=== PATIENT | male | born 1955 | race Caucasian/White ===

== ENCOUNTER → 2024-02-16 08:14 | Outpatient (REF) | payer OTHER, SELFPAY | LOC: HWRAD 08:14 | PROVIDERS: ATTENDING PHYSICIAN Family Medicine | DX: Z87.891 Personal history of nicotine dependence (principal) | CPT/HCPCS: 71250 ==

== ENCOUNTER 2024-04-30 15:57 | Inpatient (IN) | payer OTHER, SELFPAY ==
[2024-04-30] VITALS (7 sets, daily range): BP systolic 106–148; BP diastolic 47–65; BMI 30.1
--- NOTE | 2024-04-30 12:37 | ED.GENMED ---
History of Present Illness
General
Chief Complaint: Cardiac Symptoms
Time Seen by Provider: 04/30/24 12:18
History of Present Illness
History of Present Illness:
Patient is a 69-year-old male with history of peripheral arterial disease, pancreatitis, diabetes presenting to the emergency department back pain chest pain and abdominal pain. Patient states that last week he thought he had back pain secondary to
sleeping in uncomfortable hotel bed. He was also sick last week with the chills and diarrhea. He came back 3 days ago to begin his usual bowel. He states the back pain did slightly improve. However this morning around 4 AM he woke up with
worsening back pain that radiated to his chest as well as worsening abdominal pain. He states that it is a soreness. It is not tearing. No numbness tingling. No weakness. No nausea or diaphoresis. This does not feel similar to his
pancreatitis. No fevers or chills since last week. He did take Tylenol with some relief. No saddle anesthesia or urinary retention spinal injections or history of IV drug use
Past History
Past History
ED Past Medical History: HTN, Hypercholesterolemia and Other (Pancreatitis); Negative IDDM
ED Past Surgical History: None
Social History
Tobacco: Smoker
Personal:
Phy Exam
Physical Exam
Physical Exam:
GENERAL: Appears uncomfortable
HEENT: normocephalic, extraocular movements intact, moist oral mucosa
NECK: normal inspection
Back: No reproducible tenderness to palpation
RESPIRATORY: Tachypneic, clear to auscultation bilaterally
CARDIOVASCULAR: regular rate and rhythm, 2+ radial pulse to the right, 1+ radial pulse to the left
ABDOMEN/: soft, non-distended, diffusely tender,, no rebound or guarding
EXTREMITIES: non-tender, no edema/swelling
NEUROLOGIC: awake and alert, moves all extremities
SKIN: warm
Course
Orders/Labs/Results
Orders:
Orders
04/30/24 11:34
EKG [Electrocardiogram (*1)] Urgent
Reason for Study: Chest Pain
EKG- Treatment ONCE
04/30/24 12:22
CXR2 [CR Chest - 2 Views ] Urgent
Comment:
Reason For Exam: chest pain with SOB
04/30/24 12:36
CT Chest/abd/pelvis Angio W/wo Urgent
Comment:
Reason For Exam: back pain, chest pain, slight pulse def
04/30/24 12:46
Complete Blood Count/With Diff Urgent
Comprehensive Metabolic Panel Urgent
Lipase Urgent
Troponin I Urgent
04/30/24 13:10
Acetaminophen [Tylenol] 1,000 mg PO NOW STA
Abnormal Lab Results
04/30/24
12:46
WBC 21.0 H 10^3/uL
(4.8-10.8)
Plt Count 408 H 10^3/uL
(130-400)
Abs Immat Gran (auto) 0.4 H 10^3/uL
(0-0.05)
Absolute Neuts (auto) 19.5 H 10^3/uL
(1.4-6.5)
Absolute Lymphs (auto) 0.4 L 10^3/uL
(1.2-3.4)
Immature Gran % 1.8 H %
(0-0.5)
Neutrophils % 92.7 H %
(42.2-75.2)
Lymphocytes % 2.1 L %
(20.5-51.1)
Carbon Dioxide 19 L mmol/L
(22-30)
BUN 24 H mg/dl
(9-20)
Glucose 254 H mg/dl
(70-99)
Total Bilirubin 7.6 H mg/dl
(0.2-1.3)
AST 882 H* U/L
(17-59)
ALT 1079 H* U/L
(0-50)
Alkaline Phosphatase 415 H U/L
(38-126)
Lipase > 4000 H* U/L
(23-300)
04/30/24 12:46
04/30/24 12:46
Vital Signs
Initial and Last Documented VS:
Initial Vital Signs
Temp Pulse Resp BP Pulse Ox
98.1 F 96 20 148/65 96
04/30/24 11:37 04/30/24 11:37 04/30/24 11:37 04/30/24 11:37 04/30/24 11:37
Last Documented Vital Signs
Temp Pulse Resp BP Pulse Ox
98.1 F 87 27 134/52 94
04/30/24 11:37 04/30/24 13:45 04/30/24 13:45 04/30/24 13:00 04/30/24 13:45
MDM/Problems Addressed
Differential Diagnosis Includes:
Patient is a 69-year-old male with history of peripheral arterial disease, diabetes, pancreatitis presenting to the emergency department with sudden onset back pain chest pain and abdominal pain. Vital signs are notable for tachypnea and exam shows
a man who appears uncomfortable with tachypneic and short of breath while talking. He does have a slight pulse deficit to his left radius. He does not have any red flags to suggest cauda equina or abscess or compression syndrome. Could be aortic
pathology such as dissection given the pain that is from the back to the chest with the subtle difference in the pulse. Could be malignancy or pathologic fracture. Could also be pancreatitis or gastroenteritis. Less likely to be PE as he is not
hypoxic or tachycardic. Will check blood work and obtain CT dissection protocol. EKG per my interpretation normal sinus rhythm though he does have a rightward axis which is new.
*Critical Care Note
Total Time (30-74mins, 75-104mins- exclusive of procedures): Not Applicable
Update Note
Update Note:
On reevaluation patient does seem slightly comfortable. His tachypnea has resolved after the pain medications. Received a critical call for his lipase being greater than 4000. He does also has transaminitis. His white count is also elevated
though he is not febrile and currently does not have any infectious signs or symptoms. CT scan of the chest abdomen pelvis is negative for dissection. He does have cystic pancreatic masses with signs of chronic pancreatitis. Nothing acute. Given
this discussed with hospitalist for further admission and evaluation. Given that there is no source for the leukocytosis we will hold off on antibiotics at this time and will defer to the inpatient team.
ED Attending Note
-
Portions of this chart may have been created with voice recognition software.� Occasional wrong word or��sound alike� substitutions may have occurred due to the inherent limitations of voice recognition software.
Discharge Plan
Departure
Patient Disposition: Admit
Date of Disposition: 04/30/24
Time of Disposition: 15:21
Presentation/result/management discussed w/ accepting MD/DO: Hospitalist
Discharge Problem:
Chronic pancreatitis, Transaminitis
Prescriptions:
No Action
aspirin [St Leopoldo Aspirin] 81 MG tablet,chewable
81 mg PO Q48H
insulin glargine [Lantus Solostar U-100 Insulin] 300 UNITS/3 ML insulin pen
45 units SC HS
metformin 500 mg Tablet
1,000 mg PO DAILY
loperamide 2 mg Tablet
2 mg PO TIDPRN PRN (Reason: diarrhea )
Theragen Tablet
1 tab PO DAILY
acetaminophen [Tylenol Extra Strength] 500 mg Tablet
1,000 mg PO DAILY
lisinopril 5 mg Tablet
5 mg PO DAILY
insulin lispro [Humalog KwikPen Insulin] 100 unit/mL Insulin Pen
20 sliding scale dose SC AC
rosuvastatin [Crestor] 40 mg Tablet
40 mg PO DAILY
fenofibrate nanocrystallized [Tricor] 145 mg Tablet
145 mg PO DAILY
Referrals:
Josue Garcia MD [Family Provider] -
Interventions
Interventions:
*Risk Screen - Suicide Last Done: 04/30/24 11:37
*General Assessment Last Done: 04/30/24 11:37
*Neglect/Abuse Screening Last Done: 04/30/24 11:37
ED- Fall Risk Assessment Last Done: 04/30/24 12:53
*ED COVID-19 Vaccine History Last Done: 04/30/24 12:53
ED- Pulmonary Assessment Last Done: 04/30/24 12:53
ED-Musculoskeletal Assessment Last Done: 04/30/24 12:53
ED- Cardiac Assessment Last Done: 04/30/24 12:53
Discharge Date and Time
Print Language: SINGAPOREAN
[2024-04-30 12:53] LABS: % Basophils 0.7 % (0-2); % Immature Granulocytes 1.8 % (0-0.5); % Lymphocytes 2.1 % (20.5-51.1); % Monocytes 2.7 % (1.7-9.3); % Neutrophils 92.7 % (42.2-75.2); Absolute Basophils 0.1 10^3/uL (0-0.2); Absolute Immature Granulocytes 0.4 10^3/uL (0-0.05); Absolute Lymphocytes 0.4 10^3/uL (1.2-3.4); Absolute Monocytes 0.6 10^3/uL (0.1-0.6); Absolute Neutrophils 19.5 10^3/uL (1.4-6.5); Hematocrit 42.3 % (39.0-52.0); Hemoglobin 14.6 g/dL (13.0-18.0); Mean Corp Hgb Conc. 34.5 g/dL (33.0-37.0); Mean Corpuscular Hgb 29.5 pg (27.0-31.0); Mean Corpuscular Volume 85.5 fL (80.0-94.0); Mean Platelet Volume 9.5 fL (7.4-10.4); Nucleated Red Blood Cells % 0 % (-); Platelet Count 408 10^3/uL (130-400); Red Blood Cell Count 4.95 10^6/uL (4.70-6.10); Red Cell Dist. Width 14.3 % (11.5-14.5)
[2024-04-30 13:15] LABS: Alkaline Phosphatase 415 U/L (38-126); Blood Urea Nitrogen 24 mg/dl (9-20); Calcium 10.2 mg/dl (8.4-10.2); Carbon Dioxide 19 mmol/L (22-30); Chloride 102 mmol/L (98-107); Estimated Creatinine Clearance 82 ml/min; Glucose 254 mg/dl (70-99); Potassium 4.5 mmol/L (3.5-5.1); Sodium 135 mmol/L (135-145); Total Bilirubin 7.6 mg/dl (0.2-1.3); Total Protein 7.2 g/dl (6.3-8.2); eGFR > 60.00
[2024-04-30] MEDS: TYLENOL 1000 MG PO (13:18)
[2024-04-30 13:24] LABS: Troponin I < 0.012 ng/ml
[2024-04-30 13:31] LABS: Lipase > 4000 U/L (23-300)
[2024-04-30 13:50] LABS: ALT (SGPT) 1079 U/L (0-50); AST (SGOT) 882 U/L (17-59)
--- NOTE | 2024-04-30 15:44 | HPS.HSE ---
Family Physician
-
Family Physician: Josue Garcia
Chief Complaint
-
abdominal pain, CP, back pain
History of Present Illness
69M Smoker, IDDM HTN, Hypercholesterolemia and Pancreatitis, pancreatic cystic mass, prior cholecystectomy PAD, DM seen at ER for eval of back pain and chest pain and abdominal pain:
- onset of back pain 1week ago and thought that due to uncomfortable matress
- then sick last week with the chills and diarrhea which resolved
- At 4 AM he woke up with worsening back pain that radiated to his chest as well as worsening abdominal pain.
ROS
No numbness tingling.
No weakness.
No nausea or diaphoresis.
This does not feel similar to his pancreatitis.
No fevers or chills since last week.
He did take Tylenol with some relief.
No saddle anesthesia or urinary retention spinal injections or history of IV drug use
Medical History
Past Medical History
Past Medical History: Reports HTN, Hypercholesterolemia, IDDM and Other (PAD )
Past Surgical History: Reports Cholecystectomy
Social History
Tobacco: Smoker
Personal:
Family History
Family History: Not pertinent
Allergies / Home Medications
Allergies reflects when Allergies were last updated in [facility].
Home Medications with original date entered in [facility]
Allergy/Medication List:
Allergies
Allergy/AdvReac Type Severity Reaction Status Date / Time
No Known Allergies Allergy Verified 04/30/24 11:40
Home Medications
aspirin 81 mg chewable tablet (St Leopoldo Aspirin) 81 mg PO Q48H Blood Clot Prevention/Tx 06/17/12
insulin glargine 100 unit/mL (3 mL) subcutaneous pen (Lantus Solostar U-100 Insulin) 45 units SC HS diabetes 01/26/14
acetaminophen 500 mg tablet (Tylenol Extra Strength) 1,000 mg PO DAILY pain 04/30/24
fenofibrate nanocrystallized 145 mg tablet (Tricor) 145 mg PO DAILY High Cholesterol 04/30/24
insulin lispro 100 unit/mL subcutaneous pen (Humalog KwikPen (U-100) Insulin) 20 sliding scale dose SC AC diabetes 04/30/24
lisinopril 5 mg tablet 5 mg PO DAILY blood pressure 04/30/24
loperamide 2 mg tablet 2 mg PO TIDPRN PRN diarrhea 04/30/24
metformin 500 mg tablet 1,000 mg PO DAILY diabetes 04/30/24
rosuvastatin 40 mg tablet (Crestor) 40 mg PO DAILY High Cholesterol 04/30/24
therapeutic multivitamin 1 tab PO DAILY supplement 04/30/24
Review of Systems
-
Constitutional: Reports No Symptoms
EENT: Reports No Symptoms
Respiratory: Reports No Symptoms
Cardiac: Reports Chest Pain
Abdomen/GI: Reports Abdominal Pain and Nausea
: Reports No Symptoms
Musculoskeletal: Reports No Symptoms
Skin: Reports No Symptoms
Neurological: Reports No Symptoms
Endocrine: Reports No Symptoms
Hematologic/Lymphatic: Reports No Symptoms
Psych: Reports No Symptoms
Physical Exam
Vital Signs
Vital Signs
Temp Pulse Resp BP Pulse Ox
98.1 F 89 24 116/61 94
04/30/24 11:37 04/30/24 15:18 04/30/24 15:18 04/30/24 15:18 04/30/24 15:18
Physical Exam
General: Well Developed, Well Nourished and No Apparent Distress
HEENT: NormoCephalic, Moist mucous membranes and Atraumatic
Respiratory: Clear
Cardiac: S1/S2 and Regular Rhythm; No Murmur or Rub
GI: Soft, Non Tender, Non Distended and Normal Bowel Sounds; No Organomegaly
Rectal: Deferred by Provider
Musculoskeletal: No Clubbing, No Cyanosis and No Edema
Skin: No Rash
Neuro: Nonfocal/grossly intact
Laboratory Results
-
04/30/24 12:46
04/30/24 12:46
Laboratory Results
Total Bilirubin 7.6 mg/dl (0.2-1.3) H 04/30/24 12:46
AST 882 U/L (17-59) H* 04/30/24 12:46
ALT 1079 U/L (0-50) H* 04/30/24 12:46
Alkaline Phosphatase 415 U/L (38-126) H 04/30/24 12:46
Troponin I < 0.012 ng/ml 04/30/24 12:46
Lipase > 4000 U/L (23-300) H* 04/30/24 12:46
Data Reviewed
-
CT Scan: Report Reviewed by me
Lab Data: Labs Reviewed by me
Impression/Plan
-
Vital Signs
Temp Pulse Resp BP Pulse Ox
98.1 F 89 24 116/61 94
04/30/24 11:37 04/30/24 15:18 04/30/24 15:18 04/30/24 15:18 04/30/24 15:18
Laboratory Tests
04/30/24
12:46
WBC 21.0 H
Plt Count 408 H
Carbon Dioxide 19 L
BUN 24 H
Creatinine 0.9
eGFR > 60.00
Glucose 254 H
Total Bilirubin 7.6 H
AST 882 H*
ALT 1079 H*
Alkaline Phosphatase 415 H
Troponin I < 0.012
Lipase > [address] Chest/abd/pelvis Angio W/wo
- No acute disease of the chest, abdomen and pelvis. No evidence of aortic dissection.
- Pulmonary nodules stable from 06/2022. Likely benign. This case will be emailed to the [facility] pulmonary nodule advisory board
- Mild emphysematous disease. Stable
- Prior cholecystectomy. Stable
- Cystic pancreatic masses. Probably benign pseudocysts. Stable from recent exam and decreased from 06/2022.
- Coarse pancreatic calcifications suggesting chronic pancreatitis. Stable
- Nonobstructing bilateral renal stones. Stable left. Increased in number on the right.
- Bilateral too small to characterize hypodense renal lesions likely benign cysts. Stable
- Mild fecal material in the colon. Improved
- Moderate diverticulosis. Stable
- Moderate prostate hypertrophy. Progressed
NO prior hospitalist admission:
ASSESSMENT & PLAN
Acute pancreatitis
HX chr elevated lipase > 4000 . New hyperbilirubinemia and new transaminitis
Significantly elevated TB and transaminitis - thus eval for choledocholithiasis
HX Cholecystectomy
CT suggest
Cystic pancreatic masses. Probably benign pseudocysts. Stable from recent exam and decreased from 06/2022.
Off note; Very anxious in closed MRI - will need premedication with IV Ativan or additional IV Dilaudid
- NPO except ice chips
- LR IVF 100/H
- Narcotic analgesia
- MRCP
- Anti emetics PRN
- Avoid Tylenol and ASA
- Held fenofibrate, Rosuvastatin
- Trend Lipase
- check indirect bilirubin
- GI consult
IDDM
- Held [employer] insulin, Metformin
- add ISS moderate
Eseential HTN
- Held d Lisinopril
- Observe BP
HX PAD
Current smoker
DVT Px: LMWH
Code: Full code
IP MS
--- NOTE | 2024-04-30 15:50 | CON.GI ---
Addendum entered and electronically signed by Rosemary Alejandre MD 04/30/24 17:36:
I saw and examined the patient.
The TERMINAL GAUGER SUPERVISOR's note was reviewed and I agree with the note.
Comment: This is a 69-year-old male with past medical history of severe necrotizing gallstone pancreatitis in 2011 requiring transfer to [facility] and had ERCP and was on TPN for about [address] Frank, pancreatic pseudocyst initially
was being monitored by Dr. Frank and then subsequently his PCP has been getting imaging every year or every other year. It is unclear if he had necrosectomy at that time or drainage of the pancreatic cyst and then subsequently had
cholecystectomy he did develop diabetes after that and has been on medication. He now presents with back pain which initially started about a week ago but worsened today prompting him to come to the ER and he was noted to have significantly
elevated LFTs with elevated lipase level and CT shows pancreatic cystic lesions and pancreatic calcifications suggesting chronic pancreatitis. No fevers or chills no nausea or vomiting.
Assessment and plan acute onset of pain with elevated lipase and abnormal LFTs concerning for possible choledocholithiasis with gallstone pancreatitis is scheduled for an MRI with MRCP we will follow-up on the results and will need an ERCP based on
that. He will also need an eventual EUS to follow-up on the pancreatic cystic lesions possible IPMN versus pancreatic pseudocysts but will also need to r/o neoplasm although this may be less likely they have been relatively stable over the past
couple of years. Continue IV fluids with lactated Ringer's increased to 200 mL/h, pain control, Zofran as needed and will also add Pepcid.
Original Note:
Consultation
-
Date/Time Consultation Requested: 04/30/24 1530
Date/Time Consultation Performed: 04/30/241549
Requesting Provider: SINCERE Ramirez
Performing Provider: SINCERE Jeffries, Rosemary Alejandre MD
Reason for Consultation: elevated LFT's and lipase
Medical History
Chief Complaint / HPI
Chief Complaint: back pain
History of Present Illness:
Pt is a 69yo with hx HTN, hypercholesterolemia, PAD, prior gallstone pancreatitis with concern for necrotizing pancreatitis with ileus 2011 requiring ERCP and TPN for 3 months then claire with [facility] management(Dr. Farnk) with new IDDM and
pancreatic cysts after episode, hypercholesterolemia with onset of back pain. On admission noted with WBC 21,000, with bili 7.6, AST 882, ALT 1079, alk phos 415 and lipase >4000. CT chest/abd/pelvis angio with no dissection, pulm nodule likely
benign, mild emphysematous disease, prior claire, cystic pancreatic masses probable benign pseudocysts stable from 2021. panc calcification with suggest chronic pancreatitis non obstructing renal stones, likely benign renal cysts, mild fecal
material in colon, diverticulosis, BPH.
In reviewing with patient he was doing well for years. Last [place] he was at beach and noted diarrhea, dark urine, chills, and back pain. On return home now noted with severe back pain 10/10 prior to admission. He also admits to some mild
chest and abdominal pain with some loose stools since last week. He denies issues with dysphagia, GERD, nausea, vomiting, constipation or rectal bleeding. EGD 2013- mild schatzki's, HH, normal duodenum food in esophagus. Prior colonoscopy at
[facility] in past.
Past Medical History
Past Medical History: COPD, HTN, Hypercholesterolemia and Other (necrotizing pancreatitis with ERCP and ? drainage of pseudocyst, known pancreatic cysts, PAD on ASA, food impaction 2013 with schatzki's ring, HH)
Past Surgical History: Cholecystectomy and Orthopedic (right knee scope )
Social History
Tobacco: Smoker
Alcohol: None
Drug: None
Personal:
Living: With Family
Employment: Retired
Family History
Family History: Reviewed & Not Pertinent
Allergies / Home Medications
Allergy/AdvReac Type Severity Reaction Status Date / Time
No Known Allergies Allergy Verified 04/30/24 11:40
�Medication �Instructions �Recorded
aspirin 81 mg chewable tablet (St 81 mg PO Q48H Blood Clot 06/17/12
Leopoldo Aspirin) Prevention/Tx
insulin glargine 100 unit/mL (3 45 units SC HS diabetes 01/26/14
mL) subcutaneous pen (Lantus
Solostar U-100 Insulin)
acetaminophen 500 mg tablet 1,000 mg PO DAILY pain 04/30/24
(Tylenol Extra Strength)
fenofibrate nanocrystallized 145 145 mg PO DAILY High Cholesterol 04/30/24
mg tablet (Tricor)
insulin lispro 100 unit/mL 20 sliding scale dose SC AC 04/30/24
subcutaneous pen (Humalog KwikPen diabetes
(U-100) Insulin)
lisinopril 5 mg tablet 5 mg PO DAILY blood pressure 04/30/24
loperamide 2 mg tablet 2 mg PO TIDPRN PRN diarrhea 04/30/24
metformin 500 mg tablet 1,000 mg PO DAILY diabetes 04/30/24
rosuvastatin 40 mg tablet (Crestor) 40 mg PO DAILY High Cholesterol 04/30/24
therapeutic multivitamin 1 tab PO DAILY supplement 04/30/24
Review of Systems
-
History Source: Patient and Family
Constitutional: Reports Chills (last week )
EENT: Reports No Symptoms
Respiratory: Reports No Symptoms
Cardiac: Reports Chest Pain
Abdomen/GI: Reports Abdominal Pain
: Reports Dark Urine
Musculoskeletal: Reports Other (severe back pain )
Skin: Reports No Symptoms
Neurological: Reports Weakness
Endocrine: Reports No Symptoms
Hematologic/Lymphatic: Reports No Symptoms
Vital Signs
Temp Pulse Resp BP Pulse Ox
98.1 F 89 24 116/61 94
04/30/24 11:37 04/30/24 15:18 04/30/24 15:18 04/30/24 15:18 04/30/24 15:18
Physical Exam
Exam
General: Well Developed, Well Nourished and No Apparent Distress
HEENT: Normocephalic and Other (jaundice )
Respiratory: Clear
Cardiac: Regular Rhythm
GI: Soft, Non Distended and Tender (very minimal points to mid back with pain)
Musculoskeletal: No Clubbing and No Cyanosis
Skin: Warm and Dry
Neuro: Awake, Alert and AO x 3
Psych: Calm
Results
WBC 21.0 10^3/uL (4.8-10.8) H 04/30/24 12:46
Hgb 14.6 g/dL (13.0-18.0) 04/30/24 12:46
Hct 42.3 % (39.0-52.0) 04/30/24 12:46
MCV 85.5 fL (80.0-94.0) 04/30/24 12:46
Plt Count 408 10^3/uL (130-400) H 04/30/24 12:46
Absolute Neuts (auto) 19.5 10^3/uL (1.4-6.5) H 04/30/24 12:46
Sodium 135 mmol/L (135-145) 04/30/24 12:46
Potassium 4.5 mmol/L (3.5-5.1) 04/30/24 12:46
Chloride 102 mmol/L (98-107) 04/30/24 12:46
Carbon Dioxide 19 mmol/L (22-30) L 04/30/24 12:46
BUN 24 mg/dl (9-20) H 04/30/24 12:46
Creatinine 0.9 mg/dL (0.7-1.3) 04/30/24 12:46
Calcium 10.2 mg/dl (8.4-10.2) 04/30/24 12:46
Total Bilirubin 7.6 mg/dl (0.2-1.3) H 04/30/24 12:46
AST 882 U/L (17-59) H* 04/30/24 12:46
ALT 1079 U/L (0-50) H* 04/30/24 12:46
Alkaline Phosphatase 415 U/L (38-126) H 04/30/24 12:46
Lipase > 4000 U/L (23-300) H* 04/30/24 12:46
Diagnostic Image Results:
04/30/24 CT Chest/abd/pelvis Angio W/wo
IMPRESSION: No acute disease of the chest, abdomen and pelvis. No evidence of aortic dissection.
Pulmonary nodules stable from 06/2022. Likely benign. This case will be emailed to the [facility] pulmonary nodule advisory board
Mild emphysematous disease. Stable
Prior cholecystectomy. Stable
Cystic pancreatic masses. Probably benign pseudocysts. Stable from recent exam and decreased from 06/2022.
Coarse pancreatic calcifications suggesting chronic pancreatitis. Stable
Nonobstructing bilateral renal stones. Stable left. Increased in number on the right.
Bilateral too small to characterize hypodense renal lesions likely benign cysts. Stable
Mild fecal material in the colon. Improved
Moderate diverticulosis. Stable
Moderate prostate hypertrophy. Progressed
07/2022 CT Abd Aorta Angio W/ Run Off
1. Calcific atherosclerotic changes of the abdominal aorta without evidence of aneurysmal dilatation.
2. Occlusion of the proximal right external iliac artery with reconstitution of the right common femoral artery versus collaterals.
3. Multifocal right SFA stenoses.
4. Severe left common iliac artery stenosis, moderate left external iliac stenosis, severe stenosis of the left internal iliac artery and mild stenoses of the left SFA.
5. Small right internal iliac artery aneurysms.
6. Small right renal cysts and at least two small low-attenuation left renal lesions too small to characterize.
7. Small low-attenuation nodular area within the body of the pancreas, perhaps slightly increased, not completely evaluated on this study. RECOMMEND MRI WITH PANCREAS PROTOCOL for more complete evaluation as a pancreatic malignancy cannot be
excluded.
8. Additional nonurgent findings: Prior cholecystectomy and colonic diverticulosis most prominent sigmoid.
Prior GI Procedures:
EGD: EGD 2014- mild schatzki's, HH, normal duodenum food in esophagus.
Colonoscopy: Prior colonoscopy at [facility] in past.
Assessment / Plan
-
Pt is a 69yo with hx HTN, hypercholesterolemia, PAD, prior gallstone pancreatitis with concern for necrotizing pancreatitis with ileus 2011 requiring ERCP and TPN for 3 months then claire with [facility] management(Dr. Frank) with new IDDM and
pancreatic cysts after episode, hypercholesterolemia with onset of back pain, dark urine, chills last week now severe back pain on admission, On admission noted with WBC 21,000, with bili 7.6, AST 882, ALT 1079, alk phos 415 and lipase >4000. CT
chest/abd/pelvis angio with no dissection, pulm nodule likely benign, mild emphysematous disease, prior claire, cystic pancreatic masses probable benign pseudocysts stable from 2021. panc calcification with suggest chronic pancreatitis non
obstructing renal stones, likely benign renal cysts, mild fecal material in colon, diverticulosis, BPH.
-back pain on admission
-marked elevated LFT's and lipase
-leukocytosis
-known pancreatic cystic masses likely pseudocyst
-pancreatic calcification with concern for chronic pancreatitis
-hx necrotizing pancreatitis 2012 with ? ERCP and drainage/TPN/eventual claire with management at [facility]
-CT 07/2022 Small low-attenuation nodular area within the body of the pancreasas a pancreatic malignancy cannot be excluded.
-tobacco abuse
other med problems:
-HTN
-hypercholesterolemia
-IDDM developed after pancreatitis 2011
-PAD
-Emphysema on CT chest
-renal stone/renal cysts
-diverticulosis
-BPH
PLAN:Etiology of back pain with elevated LFT's and lipase related to CBD stone, recurrent pancreatitis, mass vs other
plan for MRI will change to with and without contrast with MRCP
pt wit some claustrophobia but willing to try with Ativan prior to procedure
pain control
NPO
aggressive IVF -- s/p bolus in ER will increase LR to 200ml/hr
trend labs
family updated at bedside
will follow
-
-
Thank you for consultation and allowing me to participate in the patient's care. Please call the it application support analyst GI physician during the after hours with any questions or concerns.
[2024-04-30] MEDS: LR 1000 IV ×2 (16:31→22:36)
[2024-04-30 17:38] LABS: Direct Bilirubin 5.8 mg/dl (0.0-0.4)
[2024-04-30] MEDS: DILAUDID 0.5 MG IV (18:01)
[2024-04-30 18:19] LABS: Glucose - Point of Care 196 mg/dl (70-99)
[2024-04-30] MEDS: NOVOLOG FLEXPEN-MODERATE RESISTANCE 1 UNITS SC (18:41)
--- NOTE | 2024-04-30 19:32 | PTCARENOTE ---
Received patient from [facility]. Pt NPO with IVF infusing without difficulty. Pt complained of abdominal pain. Medicated with IV Dilaudid with relief. Made patient comfortable. Cont to assess patient status.
[2024-04-30] MEDS: HEPARIN 5000 UNITS SC (20:27)
[2024-04-30] MEDS: PEPCID 20 MG IV (20:29)
[2024-04-30] MEDS: NSS (PRESERVATIVE FREE) 8 ML IV (20:29)
[2024-05-01 02:09] LABS: Glucose - Point of Care 149 mg/dl (70-99)
[2024-05-01] MEDS: LR 1000 IV ×4 (03:36→20:46)
[2024-05-01] MEDS: DILAUDID 0.5 MG IV ×3 (03:41→20:46)
[2024-05-01] MEDS: ATIVAN 0.5 MG IV (04:14)
[2024-05-01] MEDS: NSS (PRESERVATIVE FREE) 0.25 ML IV (04:15)
[2024-05-01 05:43] LABS: Glucose - Point of Care 181 mg/dl (70-99)
--- NOTE | 2024-05-01 07:33 | W.PN.HOSP.TC ---
Addendum entered and electronically signed by Colin Wilson MD 05/01/24 22:43:
Attending Addendum-
I saw and evaluated the patient. I reviewed the resident�s note and agree with findings and plan as documented in the resident�s note. Sub: no further abd pain N/V. No complaints. feels hungry. Full 12 point ROS reviewed and negative except as
documented Exam: Vitals reviewed in chart GEN-NAD heart RRR lungs clear abd soft NT ND pos BS LE no edema
# Acute on chronic pancreatitis
- HX Cholecystectomy
- MRI abd 05/01- Remonstration of findings most in keeping with chronic pancreatitis change and pseudocyst formation. No suspicious lesions or MR evidence for acute inflammatory process in the abdomen.
- LR IVF 100/H
- pain control
- NPO
- Anti emetics PRN
- Held fenofibrate, Rosuvastatin
- Lipase back to normal from > 4000
- GI input appreciated
- NPOpMN- ERCP/EUS in am 05/02
# IDDM
- Hold insulin and metformin
- cont ISS moderate
# Essential HTN
- Lisinopril held
- monitor BP
# Transaminitis
- trending down
- repeat CMP in am
- possible passed stone?
# Leukocytosis
- trending down
- repeat CBC in am
# HX PAD
Current smoker
advised to quit
DVT Px: hep sub Q
Code: Full code
Time spent coordinating care, review of plan of care with resident, personally reviewed records in EMR, med rec, consults, notes, labs, radiology, d/w nursing and � 60 mins
Original Note:
Today's Communication/Plan
-
Assessment / Plan
Assessment / Plan
Mr. Nelson Damon is a 69yo M pmh HTN, HLD, pancreatitis, pancreatic cystic mass, PAD admitted 04/30 for an acute pancreatitis exacerbation.
Acute on chronic pancreatitis
- lipase >4000 on 04/30, now 274. resolved
- CT: cystic pancreatic mass stable from 06/2022. Coarse pancreatic calcifications suggesting chronic pancreatitis
- Abdomen MRI: chronic pancreatitis change and pseudocyst formation. No suspicious lesions or MR evidence for acute inflammatory process in the abdomen.
- LR IVF
- narcotic analgesia, antiemetics, pepcid
- MRCP pending
- GI consulted - MRCP, possible ERCP
Transaminitis, hyperbilirubinemia
- hx cholecystectomy
- improving
- concern for possible transient choledocholithiasis
- holding fenofibrate, rosuvastatin
- avoid aspirin, acetaminophen
- monitor cmp
DM
- HbA1c 7.9
- hold home insulin, metformin
- SSI moderate, accuchecks
HTN
- hold lisinopril
- monitor bp
PAD
- current smoker
DVT prophylaxis
- heparin
Code status: FULL CODE
Diet: NPO for MRCP
Anticipated Discharge: 24 - 48 hours
Subjective/Interval History
-
Date of Service: May 01, 2024
Mr. Nelson Damon is a 69yo M h HTN, HLD, pancreatitis, pancreatic cystic mass, necrotizing pancreatitis, cholecystectomy, PAD admitted 04/30 for an acute pancreatitis exacerbation. Overall, he feels better today than yesterday.
Objective Data
-
Labs:
Laboratory Results
05/01/24
06:00
WBC Pending
Hgb Pending
Hct Pending
Plt Count Pending
Sodium Pending
Potassium Pending
Chloride Pending
Carbon Dioxide Pending
BUN Pending
Creatinine Pending
Glucose Pending
Calcium Pending
Total Bilirubin Pending
AST Pending
ALT Pending
Alkaline Phosphatase Pending
Vital Signs:
Vital Signs
Temp Pulse Resp BP Pulse Ox
99.2 F 70 19 109/58 97
04/30/24 23:28 04/30/24 23:28 04/30/24 23:28 04/30/24 23:28 04/30/24 23:28
I&O
04/30/24 05/01/24 05/02/24
06:59 06:59 06:59
Intake Total 2400 / 2400
Balance 2400 / 2400
Review of Systems
-
History Source: Patient
Constitutional: Denies Fever or Chills
Respiratory: Denies Cough or Trouble Breathing
Cardiac: Denies Chest Pain, Diaphoresis or Palpitations
Abdomen/GI: Denies Nausea, Vomiting, Diarrhea or Constipated
Genitourinary: Reports Dark Urine
Musculoskeletal: Reports No Symptoms
Neuro: Reports No Symptoms
Physical Exam
-
General: Well Developed, Well Nourished, Appears in Distress and Obese
HEENT: Normocephalic, Atraumatic and Other (scleral icterus)
Respiratory: Clear to Auscultation
Cardiac: Regular Rhythm and S1/S2
GI: Soft, Nontender, Nondistended, Normal Bowel Sounds and No Hepatosplenomegaly
Genito-urinary: Other (dark urine)
Musculoskeletal: No Edema
Skin: Warm, Dry and Jaundice
Neuro: Awake and AO x 3
Psych: Calm
[2024-05-01 07:35] VITALS: BP 124/58
[2024-05-01] MEDS: PEPCID 20 MG IV ×2 (08:44→20:33)
[2024-05-01] MEDS: NSS (PRESERVATIVE FREE) 8 ML IV ×2 (08:44→20:34)
[2024-05-01] MEDS: HEPARIN 5000 UNITS SC ×2 (08:44→20:31)
[2024-05-01] MEDS: NOVOLOG FLEXPEN-MODERATE RESISTANCE 1 UNITS SC (08:45)
--- NOTE | 2024-05-01 08:48 | W.PN.GI.CBS2 ---
Today's Communication / Plan
-
trend labs
f/u on MRCP results
Assessment / Plan
-
Pt is a 69yo with hx HTN, hypercholesterolemia, PAD, prior gallstone pancreatitis with concern for necrotizing pancreatitis with ileus 2011 requiring ERCP and TPN for 3 months then claire with [facility] management(Dr. Frank) with new IDDM and
pancreatic cysts after episode, hypercholesterolemia with onset of back pain, dark urine, chills last week now severe back pain on admission, On admission noted with WBC 21,000, with bili 7.6, AST 882, ALT 1079, alk phos 415 and lipase >4000. CT
chest/abd/pelvis angio with no dissection, pulm nodule likely benign, mild emphysematous disease, prior claire, cystic pancreatic masses probable benign pseudocysts stable from 2021. panc calcification with suggest chronic pancreatitis non
obstructing renal stones, likely benign renal cysts, mild fecal material in colon, diverticulosis, BPH.
-back pain on admission
-marked elevated LFT's and lipase
-leukocytosis
-known pancreatic cystic masses likely pseudocyst
-pancreatic calcification with concern for chronic pancreatitis
-hx necrotizing pancreatitis 2011 with ? ERCP and drainage/TPN/eventual claire with management at [facility]
-CT 07/2022 Small low-attenuation nodular area within the body of the pancreasas a pancreatic malignancy cannot be excluded.
-tobacco abuse
other med problems:
-HTN
-hypercholesterolemia
-IDDM developed after pancreatitis 2011
-PAD
-Emphysema on CT chest
-renal stone/renal cysts
-diverticulosis
-BPH
PLAN:Etiology of back pain with elevated LFT's and lipase related to CBD stone, recurrent pancreatitis, IPMN less likely neoplasm
MRI with MRCP- results P
Awaiting labs trend LFTS
He may have passed a stone his pain has resolved in which case continue to treat for pancreatitis but if he does have a stone on his MRCP will schedule for ERCP
he will also need EUS eventually for the pancreatic cystic lesions possible IPMN vs pancreatic pseudocysts but will also need to r/o neoplasm although this may be less likely they have been relatively stable over the past couple of years
Continue IVF and Pepcid and Zofran PRN, pain control
Subjective
Subjective
Date of Service: May 01, 2024
He had a bowel movement today. He says his pain has markedly improved almost resolved no nausea vomiting
Objective
Data Reviewed
Laboratory Data:
Laboratory Results
PT 15.0 Sec (11.4-14.6) H 04/30/24 16:08
INR 1.20 04/30/24 16:08
Total Bilirubin 7.6 mg/dl (0.2-1.3) H 04/30/24 12:46
AST 882 U/L (17-59) H* 04/30/24 12:46
ALT 1079 U/L (0-50) H* 04/30/24 12:46
Alkaline Phosphatase 415 U/L (38-126) H 04/30/24 12:46
Lipase > 4000 U/L (23-300) H* 04/30/24 12:46
Vital Signs and I&O:
Vital Signs
Temp Pulse Resp BP Pulse Ox
98.3 F 69 18 124/58 96
05/01/24 07:35 05/01/24 07:35 05/01/24 07:35 05/01/24 07:35 05/01/24 07:35
I&O
04/30/24 05/01/24 05/02/24
06:59 06:59 06:59
Intake Total 2400 / 2400
Balance 2400 / 2400
Physical Exam
Physical Exam
Cardiology: Normal Sinus Rhythm
Pulmonary: Clear
GI: Soft, Non Distended, Non Tender and Normal Bowel Sounds
[2024-05-01 09:06] LABS: % Basophils 0.3 % (0-2); % Eosinophils 0.8 % (0-6); % Lymphocytes 9.2 % (20.5-51.1); % Neutrophils 84.7 % (42.2-75.2); Absolute Basophils 0.1 10^3/uL (0-0.2); Absolute Eosinophils 0.2 10^3/uL (0-0.7); Absolute Immature Granulocytes 0.2 10^3/uL (0-0.05); Absolute Lymphocytes 1.6 10^3/uL (1.2-3.4); Absolute Monocytes 0.7 10^3/uL (0.1-0.6); Absolute Neutrophils 14.9 10^3/uL (1.4-6.5); Hematocrit 36.2 % (39.0-52.0); Hemoglobin 12.7 g/dL (13.0-18.0); Mean Corp Hgb Conc. 35.1 g/dL (33.0-37.0); Mean Corpuscular Hgb 30.4 pg (27.0-31.0); Mean Corpuscular Volume 86.6 fL (80.0-94.0); Mean Platelet Volume 10.2 fL (7.4-10.4); Nucleated Red Blood Cells % 0 % (-); Platelet Count 365 10^3/uL (130-400); Red Blood Cell Count 4.18 10^6/uL (4.70-6.10); Red Cell Dist. Width 14.1 % (11.5-14.5); White Blood Cell Count 17.7 10^3/uL (4.8-10.8)
--- NOTE | 2024-05-01 09:16 | PTOTSP ---
The patient is independent with ambulation and mobility, denied changes in mobility since being admitted. No PT needs identified at this time, will sign off.
[2024-05-01 10:34] LABS: Glycohemoglobin (HgbA1c) 7.9 % (4.0-5.6)
[2024-05-01 11:49] LABS: Glucose - Point of Care 217 mg/dl (70-99)
[2024-05-01 12:26] LABS: AST (SGOT) 714 U/L (17-59); Albumin 3.2 g/dl (3.5-5.0); Alkaline Phosphatase 325 U/L (38-126); Blood Urea Nitrogen 22 mg/dl (9-20); Calcium 9.1 mg/dl (8.4-10.2); Carbon Dioxide 22 mmol/L (22-30); Chloride 103 mmol/L (98-107); Estimated Creatinine Clearance 82 ml/min; Glucose 179 mg/dl (70-99); HDL Cholesterol 36 mg/dl; LDL Cholesterol, Calculated 144 mg/dl; Lipase 274 U/L (23-300); Potassium 4.6 mmol/L (3.5-5.1); Sodium 137 mmol/L (135-145); Total Bilirubin 8.9 mg/dl (0.2-1.3); Total Cholesterol 223 mg/dl (50-199); Triglyceride 216 mg/dl (10-149); Very Low Density Lipoprotein 43 mg/dl (0-30); eGFR > 60.00
[2024-05-01] MEDS: NOVOLOG FLEXPEN-MODERATE RESISTANCE 3 UNITS SC ×2 (12:43→17:20)
[2024-05-01 12:51] LABS: ALT (SGPT) 836 U/L (0-50)
[2024-05-01 15:41] VITALS: BP 130/58
[2024-05-01 16:30] LABS: Glucose - Point of Care 228 mg/dl (70-99)
--- NOTE | 2024-05-01 16:35 | CM ---
Alert awake oriented patient who lives with his Mary who lives at [facility].He is independent in drivoing and all activities of daily living.No adaptive devices.
No VN hx /No SNF hx
Pharmacy [facility]
PCP DR Josue Garcia
PLAN Home no anticipated needs
[2024-05-01 21:04] LABS: Glucose - Point of Care 199 mg/dl (70-99)
[2024-05-01 23:11] VITALS: BP 123/57
[2024-05-02] MEDS: LR 1000 IV ×2 (01:13→05:35)
[2024-05-02] MEDS: DILAUDID 0.5 MG IV (05:35)
[2024-05-02 06:03] LABS: Glucose - Point of Care 184 mg/dl (70-99)
[2024-05-02] MEDS: NOVOLOG FLEXPEN-MODERATE RESISTANCE 1 UNITS SC (06:06)
--- NOTE | 2024-05-02 07:25 | W.PN.HOSP.TC ---
Addendum entered and electronically signed by Colin Wilson MD 05/02/24 22:59:
Attending Addendum-
I saw and evaluated the patient. I reviewed the resident�s note and agree with findings and plan as documented in the resident�s note. Sub: no further abd pain N/V. No complaints. toleratng diet. wants to kana ome. seen with . Full 12 point ROS
reviewed and negative except as documented Exam: Vitals reviewed in chart GEN-NAD heart RRR lungs clear abd soft NT ND pos BS LE no edema
# Acute on chronic pancreatitis
- resolved
- HX Cholecystectomy
- MRI abd 05/01- Remonstration of findings most in keeping with chronic pancreatitis change and pseudocyst formation. No suspicious lesions or MR evidence for acute inflammatory process in the abdomen.
- pain control
- marcell po
- Anti emetics PRN
- Held fenofibrate, Rosuvastatin
- Lipase back to normal from > 4000
- GI input appreciated
- ERCP/EUS as OP
- d/w GI ok for DC
# IDDM
- Hold insulin and metformin resume oin DC
- cont ISS moderate
# Essential HTN
- Lisinopril held resume on DC
- monitor BP
# Transaminitis
- trending down
- repeat CMP in am
- possible passed stone?
# Hyperbilirubinemia
- mildly lower
- repeat as OP in one week
# Leukocytosis
- trending down
# HX PAD
Current smoker
advised to quit
DVT Px: hep sub Q
Code: Full code
Dispo DC home with /anns choice [place]
Time spent coordinating care, DC planning, review of DC plan of care with resident, transition of care, review of records, med rec/scripts sent electronically, consults, notes, d/w consultants/GI, nursing, family/, and CM� 37 mins
Original Note:
Today's Communication/Plan
-
Assessment / Plan
Assessment / Plan
Mr. Nelson Damon is a 69yo M pmh HTN, HLD, pancreatitis, pancreatic cystic mass, PAD admitted 04/30 for an acute pancreatitis exacerbation.
Acute on chronic pancreatitis
- lipase >4000 on 04/30, now 274. resolved
- CT: cystic pancreatic mass stable from 06/2022. Coarse pancreatic calcifications suggesting chronic pancreatitis
- Abdomen MRI: chronic pancreatitis change and pseudocyst formation. No suspicious lesions or MR evidence for acute inflammatory process in the abdomen.
- LR IVF
- analgesia, antiemetics, pepcid
- MRCP: no CBD stone
- GI following
Transaminitis, hyperbilirubinemia
- hx cholecystectomy
- improving
- concern for possible transient choledocholithiasis
- holding fenofibrate, rosuvastatin
- avoid aspirin, acetaminophen
- monitor cmp
- GI: if bilirubin trends downward, advance diet. possible OP EUS
DM
- HbA1c 7.9
- hold home insulin, metformin
- SSI moderate, accuchecks
HTN
- hold lisinopril
- monitor bp
PAD
- current smoker
- smoking cessation counseling
DVT prophylaxis
- heparin
Code status: FULL CODE
Diet: NPO
Anticipated Discharge: 24 - 48 hours
Subjective/Interval History
-
Date of Service: May 02, 2024
Mr. Nelson Damon is a 69yo M pmh HTN, HLD, pancreatitis, pancreatic cystic mass, PAD admitted 04/30 for an acute pancreatitis exacerbation. No acute events overnight.
Objective Data
-
Labs:
Laboratory Results
05/02/24
07:25
WBC Pending
Hgb Pending
Hct Pending
Plt Count Pending
Sodium Pending
Potassium Pending
Chloride Pending
Carbon Dioxide Pending
BUN Pending
Creatinine Pending
Glucose Pending
Calcium Pending
Total Bilirubin Pending
AST Pending
ALT Pending
Alkaline Phosphatase Pending
Vital Signs:
Vital Signs
Temp Pulse Resp BP Pulse Ox
98.2 F 57 19 123/57 95
05/01/24 23:11 05/01/24 23:11 05/01/24 23:11 05/01/24 23:11 05/01/24 23:11
I&O
05/01/24 05/02/24 05/03/24
06:59 06:59 06:59
Intake Total 2400 / 2400 2880 / 2880
Output Total 775 / 775
Balance 2400 / 2400 2105 / 2105
Review of Systems
-
History Source: Patient
All other systems: Reviewed and negative
Constitutional: Denies Fever or Chills
Respiratory: Denies Cough or Trouble Breathing
Cardiac: Denies Chest Pain or Palpitations
Abdomen/GI: Denies Abdominal Pain, Nausea, Vomiting, Diarrhea or Constipated
Genitourinary: Reports No Symptoms
Physical Exam
-
General: Obese
HEENT: Normocephalic, Atraumatic and Moist Mucous Membranes
Respiratory: Clear to Auscultation and Non Labored Respirations; Negative Wheezes, Rales, Rhonchi or Crackles
Cardiac: Regular Rhythm, S1/S2 and Bradycardic; Negative Murmur, Rub or Gallop
GI: Nontender, Normal Bowel Sounds and Other (tense)
Musculoskeletal: No Cyanosis and No Edema
Skin: Warm, Dry and Jaundice (improved from yesterday)
Neuro: Awake and AO x 3
Psych: Calm
[2024-05-02 07:33] VITALS: BP 138/62
--- NOTE | 2024-05-02 08:09 | W.PN.GI.CBS2 ---
Today's Communication / Plan
-
trend labs
If bili coming down will adv diet and possible DC for OP EUS
Assessment / Plan
-
Pt is a 69yo with hx HTN, hypercholesterolemia, PAD, prior gallstone pancreatitis with concern for necrotizing pancreatitis with ileus 2011 requiring ERCP and TPN for 3 months then claire with [facility] management(Dr. Frank) with new IDDM and
pancreatic cysts after episode, hypercholesterolemia with onset of back pain, dark urine, chills last week now severe back pain on admission, On admission noted with WBC 21,000, with bili 7.6, AST 882, ALT 1079, alk phos 415 and lipase >4000. CT
chest/abd/pelvis angio with no dissection, pulm nodule likely benign, mild emphysematous disease, prior claire, cystic pancreatic masses probable benign pseudocysts stable from 2021. panc calcification with suggest chronic pancreatitis non
obstructing renal stones, likely benign renal cysts, mild fecal material in colon, diverticulosis, BPH.
-back pain on admission
-marked elevated LFT's and lipase
-leukocytosis
-known pancreatic cystic masses likely pseudocyst
-pancreatic calcification with concern for chronic pancreatitis
-hx necrotizing pancreatitis 2011 with ? ERCP and drainage/TPN/eventual claire with management at [facility]
-CT 07/2022 Small low-attenuation nodular area within the body of the pancreasas a pancreatic malignancy cannot be excluded.
-tobacco abuse
other med problems:
-HTN
-hypercholesterolemia
-IDDM developed after pancreatitis 2011
-PAD
-Emphysema on CT chest
-renal stone/renal cysts
-diverticulosis
-BPH
PLAN:Etiology of back pain with elevated LFT's and lipase related to CBD stone, recurrent pancreatitis, IPMN less likely neoplasm
MRI with MRCP-with chronic pancreatitis pancreatic cysts largest cyst was 3 cm with no PD dilatation, mildly dilated CBD status post cholecystectomy no obvious stone was visualized
Bilirubin yesterday was more elevated reached out to radiology to make sure there was no stone in the CBD, if he continues to have persistent elevation in bilirubin may need EUS to rule out small CBD stone and also to evaluate the pancreatic cystic
lesions and ERCP if there is a stone
Awaiting labs- trend LFTS
He may have passed a stone his pain has resolved
he will also need EUS eventually for the pancreatic cystic lesions possible IPMN vs pancreatic pseudocysts but will also need to r/o neoplasm although this may be less likely they have been relatively stable over the past couple of years
Continue IVF and Pepcid and Zofran PRN, pain control
If labs are trending down will start diet and possible DC if tolerates for OP EUS
Subjective
Subjective
Date of Service: May 02, 2024
No further pain and tolerated clear liquids, afebrile, labs are pending
Objective
Data Reviewed
Laboratory Data:
Laboratory Results
PT 15.0 Sec (11.4-14.6) H 04/30/24 16:08
INR 1.20 04/30/24 16:08
Total Bilirubin 8.9 mg/dl (0.2-1.3) H 05/01/24 08:31
AST 714 U/L (17-59) H* 05/01/24 08:31
ALT 836 U/L (0-50) H* 05/01/24 08:31
Alkaline Phosphatase 325 U/L (38-126) H 05/01/24 08:31
Lipase 274 U/L (23-300) 05/01/24 08:31
Vital Signs and I&O:
05/01/24 MRI WITH MRCP
IMPRESSION:
Redemonstration of findings most in keeping with chronic pancreatitis change and pseudocyst formation. No suspicious lesions or MR evidence for acute inflammatory process in the abdomen.
Diffuse pancreatic atrophy redemonstrated. Scattered prominent cystic lesions redemonstrated largest in the tail measuring up to 3.0 cm, all without overt mural nodularity/enhancement or definite connection with the underlying nondilated main
pancreatic duct, and overall decreased from prior MRI 01/09/2015.
Mild intrahepatic and extrahepatic biliary ductal dilatation, not unexpected for postcholecystectomy status.
Vital Signs
Temp Pulse Resp BP Pulse Ox
98.0 F 50 17 138/62 93
05/02/24 07:33 05/02/24 07:33 05/02/24 07:33 05/02/24 07:33 05/02/24 07:33
I&O
05/01/24 05/02/24 05/03/24
06:59 06:59 06:59
Intake Total 2400 / 2400 2880 / 2880
Output Total 775 / 775
Balance 2400 / 2400 2105 / 2105
Physical Exam
Physical Exam
Cardiology: Normal Sinus Rhythm
Pulmonary: Clear
GI: Soft, Non Distended, Non Tender and Normal Bowel Sounds
--- NOTE | 2024-05-02 08:31 | W.PN.GI.CBS2 ---
Today's Communication / Plan
-
duplicate
Assessment / Plan
-
Pt is a 69yo with hx HTN, hypercholesterolemia, PAD, prior gallstone pancreatitis with concern for necrotizing pancreatitis with ileus 2011 requiring ERCP and TPN for 3 months then claire with [facility] management(Dr. Frank) with new IDDM and
pancreatic cysts after episode, hypercholesterolemia with onset of back pain, dark urine, chills last week now severe back pain on admission, On admission noted with WBC 21,000, with bili 7.6, AST 882, ALT 1079, alk phos 415 and lipase >4000. CT
chest/abd/pelvis angio with no dissection, pulm nodule likely benign, mild emphysematous disease, prior claire, cystic pancreatic masses probable benign pseudocysts stable from 2021. panc calcification with suggest chronic pancreatitis non
obstructing renal stones, likely benign renal cysts, mild fecal material in colon, diverticulosis, BPH.
-back pain on admission
-marked elevated LFT's and lipase
-leukocytosis
-known pancreatic cystic masses likely pseudocyst
-pancreatic calcification with concern for chronic pancreatitis
-hx necrotizing pancreatitis 2011 with ? ERCP and drainage/TPN/eventual claire with management at [facility]
-CT 07/2022 Small low-attenuation nodular area within the body of the pancreasas a pancreatic malignancy cannot be excluded.
-tobacco abuse
other med problems:
-HTN
-hypercholesterolemia
-IDDM developed after pancreatitis 2011
-PAD
-Emphysema on CT chest
-renal stone/renal cysts
-diverticulosis
-BPH
PLAN:Etiology of back pain with elevated LFT's and lipase related to CBD stone, recurrent pancreatitis, IPMN less likely neoplasm
MRI with MRCP-with chronic pancreatitis pancreatic cysts largest cyst was 3 cm with no PD dilatation, mildly dilated CBD status post cholecystectomy no obvious stone was visualized
Bilirubin yesterday was more elevated reached out to radiology to make sure there was no stone in the CBD, if he continues to have persistent elevation in bilirubin may need EUS to rule out small CBD stone and also to evaluate the pancreatic cystic
lesions and ERCP if there is a stone
Awaiting labs- trend LFTS
He may have passed a stone his pain has resolved
he will also need EUS eventually for the pancreatic cystic lesions possible IPMN vs pancreatic pseudocysts but will also need to r/o neoplasm although this may be less likely they have been relatively stable over the past couple of years
Continue IVF and Pepcid and Zofran PRN, pain control
If labs are trending down will start diet and possible DC if tolerates for OP EUS
Subjective
Subjective
Date of Service: May 02, 2024
Objective
Data Reviewed
Laboratory Data:
Laboratory Results
PT 15.0 Sec (11.4-14.6) H 04/30/24 16:08
INR 1.20 04/30/24 16:08
Total Bilirubin 8.9 mg/dl (0.2-1.3) H 05/01/24 08:31
AST 714 U/L (17-59) H* 05/01/24 08:31
ALT 836 U/L (0-50) H* 05/01/24 08:31
Alkaline Phosphatase 325 U/L (38-126) H 05/01/24 08:31
Lipase 274 U/L (23-300) 05/01/24 08:31
Vital Signs and I&O:
Vital Signs
Temp Pulse Resp BP Pulse Ox
98.0 F 50 17 138/62 93
05/02/24 07:33 05/02/24 07:33 05/02/24 07:33 05/02/24 07:33 05/02/24 07:33
I&O
05/01/24 05/02/24 05/03/24
06:59 06:59 06:59
Intake Total 2400 / 2400 2880 / 2880
Output Total 775 / 775
Balance 2400 / 2400 2105 / 2105
--- NOTE | 2024-05-02 08:33 | W.PN.UPDATE ---
Update Note
Progress Note Update
discussed with Dr. Marcelino Radiologist the MRCP is negative for CBD stone will trend labs
[2024-05-02 09:03] LABS: Hematocrit 34.7 % (39.0-52.0); Hemoglobin 12.3 g/dL (13.0-18.0); Mean Corp Hgb Conc. 35.4 g/dL (33.0-37.0); Mean Corpuscular Hgb 30.7 pg (27.0-31.0); Mean Corpuscular Volume 86.5 fL (80.0-94.0); Mean Platelet Volume 10.3 fL (7.4-10.4); Platelet Count 374 10^3/uL (130-400); Red Blood Cell Count 4.01 10^6/uL (4.70-6.10); Red Cell Dist. Width 14.3 % (11.5-14.5); White Blood Cell Count 14.1 10^3/uL (4.8-10.8)
[2024-05-02] MEDS: HEPARIN 5000 UNITS SC (09:03)
[2024-05-02] MEDS: NSS (PRESERVATIVE FREE) 8 ML IV (09:04)
[2024-05-02] MEDS: PEPCID 20 MG IV (09:04)
[2024-05-02 09:16] LABS: % Basophils 0.4 % (0-2); % Eosinophils 1.2 % (0-6); % Immature Granulocytes 1.3 % (0-0.5); % Lymphocytes 12.4 % (20.5-51.1); % Monocytes 3.9 % (1.7-9.3); % Neutrophils 80.8 % (42.2-75.2); Absolute Basophils 0.1 10^3/uL (0-0.2); Absolute Eosinophils 0.2 10^3/uL (0-0.7); Absolute Immature Granulocytes 0.2 10^3/uL (0-0.05); Absolute Lymphocytes 1.7 10^3/uL (1.2-3.4); Absolute Monocytes 0.6 10^3/uL (0.1-0.6); Absolute Neutrophils 11.4 10^3/uL (1.4-6.5); Nucleated Red Blood Cells % 0 % (-)
[2024-05-02 09:20] LABS: ALT (SGPT) 699 U/L (0-50); AST (SGOT) 540 U/L (17-59); Alkaline Phosphatase 401 U/L (38-126); Blood Urea Nitrogen 17 mg/dl (9-20); Calcium 9.1 mg/dl (8.4-10.2); Chloride 100 mmol/L (98-107); Estimated Creatinine Clearance 92 ml/min; Glucose 179 mg/dl (70-99); Lipase 65 U/L (23-300); Potassium 4.6 mmol/L (3.5-5.1); Sodium 133 mmol/L (135-145); Total Bilirubin 8.5 mg/dl (0.2-1.3); Total Protein 5.9 g/dl (6.3-8.2); eGFR > 60.00
[2024-05-02 09:41] LABS: Carbon Dioxide 19 mmol/L (22-30)
--- NOTE | 2024-05-02 09:48 | W.PN.UPDATE ---
Addendum entered and electronically signed by Rosemary Alejandre MD 05/02/24 15:56:
Discussed with Dr. Sanches given there is no ductal dilatation on MRCP and no CBD stone hold on EUS/ERCP for now. If patient tolerates diet and no pain okay to DC home with repeat LFTs in 1 week and follow-up with Dr. Frank who is his prior
traffic and transport planner at [facility] for outpatient EUS for persistent pancreatic cystic lesions or can follow-up with Dr. Sanches he needs to get his records from Dr. Frank at [facility].
Original Note:
Update Note
Progress Note Update
labs are back, WBC trending down, bili still elevated but her transaminases are trending down and pain resolved , possibly passed stone since MRCP also neg ? lag with bili. will advance diet to low fat diet, DC IVF and repeat labs in AM EUS maybe
tomorrow if bili still elevated
[2024-05-02 10:03] VITALS: BMI 29.4
[2024-05-02] MEDS: LR IV (10:16)
[2024-05-02 12:36] LABS: Glucose - Point of Care 218 mg/dl (70-99)
[2024-05-02] MEDS: NOVOLOG FLEXPEN-MODERATE RESISTANCE 3 UNITS SC (12:55)
[2024-05-02 15:37] VITALS: BP 142/60
[2024-05-02 16:50] LABS: Glucose - Point of Care 257 mg/dl (70-99)
--- NOTE | 2024-05-02 16:53 | CM ---
MD entered order for discharge.
Offered VN he declined need.
at bedside she will drive him home.
IMM reviewed signed on chart.
PLAN Home no anticipated needs
[2024-05-02] MEDS: NOVOLOG FLEXPEN-MODERATE RESISTANCE SC (17:11)
--- NOTE | 2024-05-02 17:32 | W.DCSUMMARY ---
Addendum entered and electronically signed by Colin Wilson MD 05/02/24 23:00:
Read, reviewed, and agree. See same day progress note for additional details.
Parminder Wilson MD
Original Note:
Documented by User: Bebe Norton DO, Resident 05/02/24 18:06
Discharge Summary
Discharge Data
Date of Admission: 04/30/24
Date of Discharge: 05/02/24
-
Pending Results: No
Hospital Course
Mr. Nelson Damon is a 69yo M pmh HTN, HLD, pancreatitis, pancreatic cystic mass, PAD admitted 04/30 for an acute pancreatitis exacerbation. He had transaminitis and lipase >4000 in the ED. Pt was managed w IVF, analgesia, and antiemetics as
needed. There was no acute cardiopulmonary process on CXR. Chest/abdomen/pelvis CTA shows a cystic pancreatic mass stable from 06/2022 and coarse pancreatic calcifications suggesting chronic pancreatitis. MRI abdomen showed chronic pancreatitis
change and pseudocyst formation without suspicious lesions or evidence for an acute inflammatory process in the abdomen. There was no stones found on MRCP. Transaminitis and lipase spontaneously improved. Pt overall felt better by his last day. IVF
were discontinued. Pt is afebrile and hemodynamically stable.
Discharge Plan
-
Patient Disposition: Home (Routine Discharge)
Discharge Diagnosis/Procedures: Acute on chronic pancreatitis
Condition: Good
Diet: Low Fat
Activity Restrictions/Additional Instructions:
Please get some bloodwork in 1 week.
Please follow up with either Dr. Frank or Dr. Sanches for outpatient EUS. If you choose to see Dr. Sanches, please bring your records from [facility] to your appointment or have them transferred ahead of time.
Please return to the hospital if you experience any new or worsening symptoms. This includes worsening jaundice, intractable vomiting, fevers, severe tearing back pain.
Instructions: Acute pancreatitis, Chronic Pancreatitis (DC)
Referrals:
Josue Garcia MD [Family Provider] -
Cheng Sanches MD [Active] - in two to three weeks
Prescriptions:
Continued
aspirin [St Leopoldo Aspirin] 81 MG tablet,chewable
81 mg PO Q48H
insulin glargine [Lantus Solostar U-100 Insulin] 300 UNITS/3 ML insulin pen
45 units SC HS
metformin 500 mg Tablet
1,000 mg PO DAILY
loperamide 2 mg Tablet
2 mg PO TIDPRN PRN (Reason: diarrhea )
therapeutic multivitamin Tablet
1 tab PO DAILY
acetaminophen [Tylenol Extra Strength] 500 mg Tablet
1,000 mg PO DAILY
lisinopril 5 mg Tablet
5 mg PO DAILY
insulin lispro [Humalog KwikPen Insulin] 100 unit/mL Insulin Pen
20 sliding scale dose SC AC
rosuvastatin [Crestor] 40 mg Tablet
40 mg PO DAILY
fenofibrate nanocrystallized [Tricor] 145 mg Tablet
145 mg PO DAILY
Discharge Orders:
Discharge Patient (As Directed); Ordered 05/02/24
Ordered By: Bebe Norton
Discharge Date and Time
Discharge Date/Time: 05/02/24 18:43
Print Language: BOLIVIAN

Documented by User: Colin Wilson MD 05/02/24 22:55
Discharge Summary
Discharge Data
Date of Admission: 04/30/24
Date of Discharge: 05/02/24
Discharge Plan
-
Patient Disposition: Home (Routine Discharge)
Discharge Diagnosis/Procedures: Acute on chronic pancreatitis
Condition: Good
Diet: Low Fat
Activity Restrictions/Additional Instructions:
Please get some bloodwork in 1 week.
Please follow up with either Dr. Frank or Dr. Sanches for outpatient EUS. If you choose to see Dr. Sanches, please bring your records from [facility] to your appointment or have them transferred ahead of time.
Please return to the hospital if you experience any new or worsening symptoms. This includes worsening jaundice, intractable vomiting, fevers, severe tearing back pain.
Instructions: Acute pancreatitis, Chronic Pancreatitis (DC)
Referrals:
Josue Garcia MD [Family Provider] -
Cheng Sanches MD [Active] - in two to three weeks
Prescriptions:
Continued
aspirin [St Leopoldo Aspirin] 81 MG tablet,chewable
81 mg PO Q48H
insulin glargine [Lantus Solostar U-100 Insulin] 300 UNITS/3 ML insulin pen
45 units SC HS
metformin 500 mg Tablet
1,000 mg PO DAILY
loperamide 2 mg Tablet
2 mg PO TIDPRN PRN (Reason: diarrhea )
therapeutic multivitamin Tablet
1 tab PO DAILY
acetaminophen [Tylenol Extra Strength] 500 mg Tablet
1,000 mg PO DAILY
lisinopril 5 mg Tablet
5 mg PO DAILY
insulin lispro [Humalog KwikPen Insulin] 100 unit/mL Insulin Pen
20 sliding scale dose SC AC
rosuvastatin [Crestor] 40 mg Tablet
40 mg PO DAILY
fenofibrate nanocrystallized [Tricor] 145 mg Tablet
145 mg PO DAILY
Discharge Orders:
Discharge Patient (As Directed); Ordered 05/02/24
Ordered By: Bebe Norton
Discharge Date and Time
Discharge Date/Time: 05/02/24 18:43
Print Language: BOLIVIAN
== END 2024-05-02 18:43 | disposition home or self-care (01) | DRG 439 ==
LOC: 4 EAST ACU 15:57
PROVIDERS: Clinical Nurse Specialist Family Health; ADMITTING PHYSICIAN Internal Medicine; ATTENDING PHYSICIAN Family Medicine; CONSULT PHYSICIAN Internal Medicine Gastroenterology; EMERGENCY PHYSICIAN Student in an Organized Health Care Education/Training Program; FAMILY PHYSICIAN Family Medicine
DX: K85.90 Acute pancreatitis without necrosis or infection, unspecified (principal); K86.2 Cyst of pancreas; I10 Essential (primary) hypertension; K86.1 Other chronic pancreatitis; K80.50 Calculus of bile duct without cholangitis or cholecystitis without obstruction; N40.0 Benign prostatic hyperplasia without lower urinary tract symptoms; E78.00 Pure hypercholesterolemia, unspecified; E11.51 Type 2 diabetes mellitus with diabetic peripheral angiopathy without gangrene; J43.9 Emphysema, unspecified; F17.200 Nicotine dependence, unspecified, uncomplicated; Z79.4 Long term (current) use of insulin; Z79.82 Long term (current) use of aspirin; Z79.84 Long term (current) use of oral hypoglycemic drugs; Z90.49 Acquired absence of other specified parts of digestive tract
CPT/HCPCS: 71046; 71275; 74174; 74183; 80053; 80061; 82248; 82962; 83036; 83690; 84484; 85025; 85610; 93005; 97161; 99285; A9575; Q9967

== ENCOUNTER → 2024-05-24 08:12 | Outpatient (REF) | payer OTHER, SELFPAY ==
[2024-05-24 10:45] LABS: ALT (SGPT) 31 U/L (0-50); AST (SGOT) 36 U/L (17-59); Albumin 4.5 g/dl (3.5-5.0); Alkaline Phosphatase 62 U/L (38-126); Blood Urea Nitrogen 25 mg/dl (9-20); Calcium 9.8 mg/dl (8.4-10.2); Carbon Dioxide 22 mmol/L (22-30); Chloride 104 mmol/L (98-107); Glucose 127 mg/dl (70-99); Lipase 58 U/L (23-300); Potassium 5.1 mmol/L (3.5-5.1); Sodium 141 mmol/L (135-145); Total Bilirubin 0.7 mg/dl (0.2-1.3); Total Protein 7.9 g/dl (6.3-8.2); eGFR > 60.00
== END ==
LOC: REG 08:12
PROVIDERS: ATTENDING PHYSICIAN Family Medicine; FAMILY PHYSICIAN Internal Medicine Gastroenterology
DX: R74.01 Elevation of levels of liver transaminase levels (principal); K85.90 Acute pancreatitis without necrosis or infection, unspecified
CPT/HCPCS: 36415; 80053; 83690

== ENCOUNTER → 2024-06-21 08:01 | Outpatient (REF) | payer OTHER, SELFPAY | LOC: HWRAD 08:01 | PROVIDERS: ATTENDING PHYSICIAN Surgery Vascular Surgery; FAMILY PHYSICIAN Family Medicine | DX: I73.9 Peripheral vascular disease, unspecified (principal); I72.3 Aneurysm of iliac artery | CPT/HCPCS: 74174; Q9967 ==

== ENCOUNTER → 2024-07-03 07:28 | Outpatient (REF) | payer OTHER, SELFPAY | LOC: RAD 07:28 | PROVIDERS: ATTENDING PHYSICIAN Surgery Vascular Surgery; FAMILY PHYSICIAN Family Medicine | DX: I73.9 Peripheral vascular disease, unspecified (principal) | CPT/HCPCS: 93922; 93925 ==

== ENCOUNTER 2024-10-06 23:53 | Inpatient (IN) | payer OTHER, SELFPAY ==
[2024-10-06 19:03] VITALS: BP 154/63
[2024-10-06 20:12] VITALS: BP 163/67
[2024-10-06 20:18] VITALS: BMI 28.6
--- NOTE | 2024-10-06 20:25 | ED.GENMED ---
History of Present Illness
General
Chief Complaint: Cough
Source: patient and spouse
Exam Limitations: none
Time Seen by Provider: 10/06/24 20:12
Nursing documentation reviewed up to this point in time: agreed with
History of Present Illness
History of Present Illness:
69-year-old male with past medical history of PAD, insulin-dependent diabetes who presents to the emergency room with his for evaluation of cough. Patient reports worsening symptoms x 1 week. Cough productive of clear sputum. He has had
associated shortness of breath. Denies any chest pain. He has had mild sore throat and congestion. No fever or chills. No GI symptoms. Saw his primary doctor a few days ago was prescribed Tessalon Perles but says that this has not helped and
with symptoms worsening decided to come to the ER.
Past History
Past History
ED Past Medical History: HTN, Hypercholesterolemia and Other (Pancreatitis); Negative IDDM
ED Past Surgical History: None
Social History
Tobacco: Smoker
Personal:
Review of Systems
Review of Systems
All Other Systems: ROS reviewed and negative except as documented in HPI and ROS
Constitutional: Denies fever or chills
EENT: Reports sore throat and runny nose
Respiratory: Reports cough and trouble breathing
Cardiac: Denies chest pain
ABD/GI: Denies abdominal pain, nausea or vomiting
: Denies flank pain
Musculoskeletal: Denies neck pain or back pain
Neurological: Denies headache
Phy Exam
Physical Exam
Physical Exam:
General: Awake, alert, oriented x3; no acute distress
Head: Normocephalic, atraumatic
Eyes: Conjunctiva normal
Throat: Airway intact, handling secretions
Neck: Trachea midline, no JVD
Lungs: Tachypnea, pulse ox 88% on room air; scattered rhonchi and frequent coughing
Heart: Regular rate and rhythm, no murmurs, gallops, or rubs
Abd: Soft, non distended, nontender
Neuro: No gross deficit
Extremities: No edema in extremities, equal pulses in all extremities
Scores
Heart Failure Risk
Heart Failure Risk Score: Not Applicable
Heart Score for Chest Pain Patients
STEMI patient?: Not applicable
Withdrawal Assessment of Alcohol
Withdrawal Assessment Completed?: Not applicable
Course
Orders/Labs/Results
Orders:
Orders
10/06/24 19:20
CR Chest - 2 Views Urgent
Comment:
Reason For Exam: cough x 1 week
10/06/24 20:25
Ipratropium/Albuterol Sulfate [Duoneb] 3 ml INH R NOW STA
MethylPREDNISolone PF [Solu-Medrol Pf] 125 mg IV NOW STA
10/06/24 20:30
Complete Blood Count/With Diff Urgent
Comprehensive Metabolic Panel Urgent
10/06/24 21:13
COVID-19 Antigen Urgent
Source: Nasal Swab
Influenza A+B Rapid Molecular Urgent
DEZ Source: Nasal Swab
Specimen Description:
10/06/24 21:54
Acetaminophen [Tylenol] 1,000 mg .ROUTE .STK-MED ONE
10/06/24 21:55
Acetaminophen [Tylenol] 1,000 mg PO NOW STA
10/06/24 22:35
Ipratropium/Albuterol Sulfate [Duoneb] 3 ml INH R NOW STA
10/06/24 23:23
Azithromycin 500 mg IVPB NOW Azithromycin 500 mg/250 ml [Zithromax Infusion] 500 mg in 250 ml IV NOW
CefTRIAXone [Rocephin] 1,000 mg IV NOW STA
Abnormal Lab Results
10/06/24
20:30
WBC 14.5 H 10^3/uL
(4.8-10.8)
Abs Immat Gran (auto) 0.2 H 10^3/uL
(0-0.05)
Absolute Neuts (auto) 10.4 H 10^3/uL
(1.4-6.5)
Absolute Monos (auto) 1.0 H 10^3/uL
(0.1-0.6)
Immature Gran % 1.2 H %
(0-0.5)
Lymphocytes % 19.6 L %
(20.5-51.1)
Carbon Dioxide 20 L mmol/L
(22-30)
BUN 25 H mg/dl
(9-20)
Glucose 117 H mg/dl
(70-99)
10/06/24 20:30
10/06/24 20:30
Vital Signs
Initial and Last Documented VS:
Initial Vital Signs
Temp Pulse Resp BP Pulse Ox
36.8 C 90 20 154/63 98
10/06/24 19:03 10/06/24 19:03 10/06/24 19:03 10/06/24 19:03 10/06/24 19:03
Last Documented Vital Signs
Temp Pulse Resp BP Pulse Ox
36.8 C 97 19 143/67 90
10/06/24 19:03 10/06/24 22:45 10/06/24 22:45 10/06/24 23:00 10/06/24 23:00
MDM/Problems Addressed
Differential Diagnosis Includes:
Bronchitis, pneumonia, URI
MDM/Problems Addressed:
69-year-old male presents with persistent and worsening cough productive of clear sputum now associated with increased shortness of breath. Vitals and exam as above. Place an IV check labs including a CBC and a CMP. Check chest x-ray. Already
swabbed for COVID and flu these were negative can repeat to confirm. Will treat with steroid and neb as a suspect this is acute bronchitis.
Labs reviewed he does have a leukocytosis to 14.5, CMP no clinically significant abnormalities. His COVID is negative but flu is positive. Chest x-ray reviewed by me shows no pneumonia. Suspect acute bronchitis secondary influenza. He has
required 4 L nasal cannula to maintain saturations. Wheezing has improved as has coughing slightly with DuoNeb. Will admit for continued treatment of acute respiratory failure with hypoxia secondary to bronchitis in the setting of influenza
infection. Discussed with hospitalist.
Radiology over read chest x-ray: Concern for pneumonia. Cover with antibiotics.
*Radiology
Radiology exam reviewed: preliminary read by ED provider and radiology read reviewed
*Pulse Oximetry
Patient hypoxic: yes
*Critical Care Note
Total Time (30-74mins, 75-104mins- exclusive of procedures): Not Applicable
Data Reviewed
Source: patient and spouse
Patient Management
Discussion with other providers: Hospitalist (Discussed with hospitalist)
Escalation/DeEscalation of care consider admission/obs:
Admission indicated
ED Attending Note
-
Portions of this chart may have been created with voice recognition software.� Occasional wrong word or��sound alike� substitutions may have occurred due to the inherent limitations of voice recognition software.
Discharge Plan
Departure
Patient Disposition: Admit
Date of Disposition: 10/06/24
Time of Disposition: 22:43
Admit to doctor: Noe
Presentation/result/management discussed w/ accepting MD/DO: Hospitalist
Discharge Problem:
Acute bronchitis, Influenza A, Acute hypoxemic respiratory failure, Pneumonia
Prescriptions:
No Action
aspirin [St Leopoldo Aspirin] 81 MG tablet,chewable
81 mg PO Q48H
insulin glargine [Lantus Solostar U-100 Insulin] 300 UNITS/3 ML insulin pen
46 units SC HS
metformin 500 mg Tablet
1,000 mg PO DAILY
loperamide 2 mg Tablet
2 mg PO TIDPRN PRN (Reason: diarrhea )
therapeutic multivitamin Tablet
1 tab PO DAILY
acetaminophen [Tylenol Extra Strength] 500 mg Tablet
1,000 mg PO DAILY
lisinopril 5 mg Tablet
5 mg PO DAILY
insulin lispro [Humalog KwikPen Insulin] 100 unit/mL Insulin Pen
20 sliding scale dose SC AC
rosuvastatin [Crestor] 40 mg Tablet
40 mg PO DAILY
fenofibrate nanocrystallized [Tricor] 145 mg Tablet
145 mg PO DAILY
Referrals:
Josue Garcia MD [Family Provider] -
Interventions
Interventions:
*Risk Screen - Suicide Last Done: 10/06/24 19:03
*General Assessment Last Done: 10/06/24 21:51
*Neglect/Abuse Screening Last Done: 10/06/24 19:03
*ED- Fall Risk Assessment Last Done: 10/06/24 21:51
*ED COVID-19 Vaccine History Last Done: 10/06/24 21:51
ED- Pulmonary Assessment Last Done: 10/06/24 20:18
Discharge Date and Time
Print Language: TRINIDADIAN
[2024-10-06] MEDS: SOLU-MEDROL PF 125 MG IV (20:33)
[2024-10-06] MEDS: DUONEB 3 ML INH ×2 (20:33→22:38)
[2024-10-06 20:41] LABS: Hematocrit 44.6 % (39.0-52.0); Hemoglobin 15.2 g/dL (13.0-18.0); Mean Corp Hgb Conc. 34.1 g/dL (33.0-37.0); Mean Corpuscular Hgb 30.4 pg (27.0-31.0); Mean Corpuscular Volume 89.2 fL (80.0-94.0); Mean Platelet Volume 9.1 fL (7.4-10.4); Platelet Count 373 10^3/uL (130-400); Red Cell Dist. Width 13.3 % (11.5-14.5); White Blood Cell Count 14.5 10^3/uL (4.8-10.8)
[2024-10-06 20:56] LABS: % Basophils 0.5 % (0-2); % Eosinophils 0.6 % (0-6); % Immature Granulocytes 1.2 % (0-0.5); % Lymphocytes 19.6 % (20.5-51.1); % Monocytes 6.5 % (1.7-9.3); % Neutrophils 71.6 % (42.2-75.2); ALT (SGPT) 35 U/L (0-50); AST (SGOT) 33 U/L (17-59); Absolute Basophils 0.1 10^3/uL (0-0.2); Absolute Eosinophils 0.1 10^3/uL (0-0.7); Absolute Immature Granulocytes 0.2 10^3/uL (0-0.05); Absolute Lymphocytes 2.9 10^3/uL (1.2-3.4); Absolute Neutrophils 10.4 10^3/uL (1.4-6.5); Albumin 4.3 g/dl (3.5-5.0); Alkaline Phosphatase 52 U/L (38-126); Blood Urea Nitrogen 25 mg/dl (9-20); Calcium 10.1 mg/dl (8.4-10.2); Carbon Dioxide 20 mmol/L (22-30); Chloride 103 mmol/L (98-107); Estimated Creatinine Clearance 73 ml/min; Glucose 117 mg/dl (70-99); Nucleated Red Blood Cells % 0 % (-); Potassium 4.5 mmol/L (3.5-5.1); Sodium 138 mmol/L (135-145); Total Bilirubin 0.8 mg/dl (0.2-1.3); Total Protein 7.6 g/dl (6.3-8.2); eGFR > 60.00
[2024-10-06 21:00] VITALS: BP 131/54
[2024-10-06 21:32] LABS: COVID-19 Antigen Negative (Negative)
[2024-10-06] MEDS: TYLENOL 1000 MG PO (21:56)
[2024-10-06 23:00] VITALS: BP 143/67
[2024-10-06] MEDS: ROCEPHIN 1000 MG IV (23:35)
[2024-10-06] MEDS: ZITHROMAX INFUSION 250 IV (23:40)
--- NOTE | 2024-10-06 23:47 | HPS.HSE ---
Family Physician
-
Family Physician: Josue Garcia
Chief Complaint
-
cough
History of Present Illness
69-year-old male past medical history of pulmonary hypertension, hyperlipidemia, pancreatitis, pancreatic cyst mass, PAD, diabetes presenting with cough. Patient has been having cough for 1 week. Cough is productive with clear sputum. Patient has
had shortness of breath. No chest pain. He has mild sore throat and congestion. No fevers or chills. No nausea vomiting or diarrhea. Patient was prescribed Tessalon Perles by her primary few days ago without improvement. He did have some loose
stools throughout the week and took Imodium twice. Stools are back to normal.
Smokes sometimes. Denies alcohol.
Medical History
Past Medical History
Past Medical History: Reports Other (pulmonary hypertension, hyperlipidemia, pancreatitis, pancreatic cyst mass, PAD, diabetes)
Past Surgical History: Reports None
Social History
Tobacco: Smoker
Alcohol: None
Drug: None
Family History
Family History: Not pertinent
Allergies / Home Medications
Allergies reflects when Allergies were last updated in [facility].
Home Medications with original date entered in [employer]
Allergy/Medication List:
Allergies
Allergy/AdvReac Type Severity Reaction Status Date / Time
No Known Allergies Allergy Verified 10/06/24 19:03
Home Medications
aspirin 81 mg chewable tablet (St Leopoldo Aspirin) 81 mg PO Q48H Blood Clot Prevention/Tx 06/17/12
insulin glargine 100 unit/mL (3 mL) subcutaneous pen (Lantus Solostar U-100 Insulin) 46 units SC HS diabetes 01/26/14
acetaminophen 500 mg tablet (Tylenol Extra Strength) 1,000 mg PO DAILY pain 04/30/24
fenofibrate nanocrystallized 145 mg tablet (Tricor) 145 mg PO DAILY High Cholesterol 04/30/24
insulin lispro 100 unit/mL subcutaneous pen (Humalog KwikPen (U-100) Insulin) 20 sliding scale dose SC AC diabetes 04/30/24
lisinopril 5 mg tablet 5 mg PO DAILY blood pressure 04/30/24
loperamide 2 mg tablet 2 mg PO TIDPRN PRN diarrhea 04/30/24
metformin 500 mg tablet 1,000 mg PO DAILY diabetes 04/30/24
rosuvastatin 40 mg tablet (Crestor) 40 mg PO DAILY High Cholesterol 04/30/24
therapeutic multivitamin 1 tab PO DAILY supplement 04/30/24
Review of Systems
-
History Source: Patient
A 12 point ROS was completed and negative except as noted: Yes
Constitutional: Reports No Symptoms
EENT: Reports No Symptoms
Respiratory: Reports See HPI
Cardiac: Reports No Symptoms
Abdomen/GI: Reports No Symptoms
: Reports No Symptoms
Musculoskeletal: Reports No Symptoms
Skin: Reports No Symptoms
Neurological: Reports No Symptoms
Endocrine: Reports No Symptoms
Hematologic/Lymphatic: Reports No Symptoms
Psych: Reports No Symptoms
Physical Exam
Vital Signs
Vital Signs
Temp Pulse Resp BP Pulse Ox
98.2 F 97 19 143/67 90
10/06/24 19:03 10/06/24 22:45 10/06/24 22:45 10/06/24 23:00 10/06/24 23:00
Physical Exam
General: Well Developed, Well Nourished and No Apparent Distress
HEENT: NormoCephalic, Moist mucous membranes and Atraumatic
Respiratory: Clear
Cardiac: S1/S2 and Regular Rhythm; No Murmur or Rub
GI: Soft, Non Tender, Non Distended and Normal Bowel Sounds; No Organomegaly
Rectal: Deferred by Provider
Musculoskeletal: No Clubbing, No Cyanosis and No Edema
Skin: No Rash
Neuro: Nonfocal/grossly intact
Laboratory Results
-
10/06/24 20:30
10/06/24 20:30
Laboratory Results
Total Bilirubin 0.8 mg/dl (0.2-1.3) 10/06/24 20:30
AST 33 U/L (17-59) 10/06/24 20:30
ALT 35 U/L (0-50) 10/06/24 20:30
Alkaline Phosphatase 52 U/L (38-126) 10/06/24 20:30
Data Reviewed
-
Lab Data: Labs Reviewed by me
Old Records: Reviewed
Impression/Plan
-
IMPRESSION:
PLAN:
# Influenza A infection
# Hypoxemic respiratory insufficiency secondary to moderate left lower lobe pneumonia likely postviral pneumonia
-Check sputum culture
-Out of window for Tamiflu
-Ceftriaxone/doxycycline
Pulmonary hypertension
Hyperlipidemia
-Continue fenofibrate
History of pancreatitis
History of pancreatic cyst mass
PAD
-Continue aspirin, statin
Type 2 diabetes
-Hold metformin
-Continue Lantus reduced from 46 to 23 units
-Moderate dose sliding scale
Hypertension
-Continue lisinopril
DNR/DNI
DVT prophylaxis�heparin
Regular diet
[2024-10-07] VITALS (17 sets, daily range): BP systolic 103–141; BP diastolic 48–73
[2024-10-07] MEDS: LOW STRENGTH ASPIRIN PO (02:00)
[2024-10-07] MEDS: VIBRAMYCIN 260 MG IV (03:41)
[2024-10-07 06:22] LABS: Hematocrit 40.6 % (39.0-52.0); Hemoglobin 13.8 g/dL (13.0-18.0); Mean Corpuscular Hgb 30.5 pg (27.0-31.0); Mean Corpuscular Volume 89.6 fL (80.0-94.0); Mean Platelet Volume 9.3 fL (7.4-10.4); Platelet Count 344 10^3/uL (130-400); Red Blood Cell Count 4.53 10^6/uL (4.70-6.10); Red Cell Dist. Width 13.2 % (11.5-14.5); White Blood Cell Count 11.3 10^3/uL (4.8-10.8)
[2024-10-07 06:51] LABS: ALT (SGPT) 31 U/L (0-50); AST (SGOT) 29 U/L (17-59); Albumin 3.7 g/dl (3.5-5.0); Alkaline Phosphatase 48 U/L (38-126); Blood Urea Nitrogen 28 mg/dl (9-20); Calcium 9.2 mg/dl (8.4-10.2); Carbon Dioxide 16 mmol/L (22-30); Chloride 101 mmol/L (98-107); Estimated Creatinine Clearance 73 ml/min; Glucose 395 mg/dl (70-99); Potassium 5.1 mmol/L (3.5-5.1); Sodium 135 mmol/L (135-145); Total Bilirubin 0.7 mg/dl (0.2-1.3); Total Protein 6.7 g/dl (6.3-8.2); eGFR > 60.00
[2024-10-07] MEDS: DUONEB 3 ML INH ×2 (08:02→22:45)
[2024-10-07 08:36] LABS: Glycohemoglobin (HgbA1c) 8.5 % (4.0-5.6)
[2024-10-07] MEDS: THERAGRAN 1 TABLET PO (08:43)
[2024-10-07] MEDS: ZESTRIL 5 MG PO (08:43)
[2024-10-07] MEDS: HEPARIN 5000 UNITS SC ×2 (08:43→21:30)
[2024-10-07] MEDS: TYLENOL 1000 MG PO ×2 (08:43→21:24)
[2024-10-07 08:44] LABS: Glucose - Point of Care 360 mg/dl (70-99)
[2024-10-07] MEDS: CRESTOR 40 MG PO (08:44)
[2024-10-07] MEDS: TRICOR 145 MG PO (08:44)
[2024-10-07] MEDS: NOVOLOG FLEXPEN-MODERATE RESISTANCE 9 UNITS SC (09:30)
--- NOTE | 2024-10-07 10:18 | CM ---
Patient seen at bedside with physician. Patient stated that he lives with his in an apartment with [employer]. Patient stated that his PCP Dr. Josue Garcia. Patient uses the [facility] pharmacy and his plan is for return to apartment
with no VN. Patient does not have home O2 and is currently on 10 liters O2. Patient has DM concerns and for per physician is for treatment of pneumonia and flu. CM will continue to follow for discharge planning needs.
Plan; home with no needs watch for home O2 needs and VN
--- NOTE | 2024-10-07 10:19 | W.PN.HOSP.TC ---
Today's Communication/Plan
-
consult pulm
start Tamiflu
cont ABX
wean O2 as able
Assessment / Plan
Assessment / Plan
pt is a 69 year old male
Influenza A infection--tested neg on 10/03 at PCP--positive in ED 10/06--will treat with Tamiflu
Acute Hypoxemic respiratory insufficiency secondary to moderate left lower lobe pneumonia likely postviral pneumonia along with influenza A positive--follow cultures--on 10L O2--consult pulm --Ceftriaxone/doxycycline
pulmonary nodule--noted on CXR--consult pulm
Pulmonary hypertension
Hyperlipidemia--Continue fenofibrate
History of pancreatitis
History of pancreatic cyst mass
PAD--Continue aspirin, statin
Type 2 diabetes--restart metformin--Continue Lantus reduced from 46 to 23 units--Moderate dose sliding scale--did receive solumedrol in ED--did NOT receive Lantus
Essential Hypertension--Continue lisinopril
code status --DNR/DNI
DVT prophy�heparin
Anticipated Discharge: > 48 hours
Subjective/Interval History
-
Date of Service: October 07, 2024
pt concerned about elevated blood sugar of 360 and only getting 9 units of short acting insulin
Objective Data
-
Labs:
Laboratory Results
10/07/24
05:36
WBC 11.3 H
Hgb 13.8
Hct 40.6
Plt Count 344
Sodium 135
Potassium 5.1
Chloride 101
Carbon Dioxide 16 L
BUN 28 H
Creatinine 0.9
Glucose 395 H
Calcium 9.2
Total Bilirubin 0.7
AST 29
ALT 31
Alkaline Phosphatase 48
Vital Signs:
max temp for 24 hours
10/06/24
19:03
Temp 98.2 F
Vital Signs
Temp Pulse Resp BP Pulse Ox
98.2 F 89 16 141/67 92
10/06/24 19:03 10/07/24 08:43 10/07/24 08:04 10/07/24 08:43 10/07/24 08:30
I&O
10/06/24 10/07/24 10/08/24
06:59 06:59 06:59
Output Total 500 / 500
Balance -500 / -500
Review of Systems
-
All other systems: Reviewed and negative
Physical Exam
-
General: Well Developed, Well Nourished and No Apparent Distress
HEENT: Normocephalic, Atraumatic and Oxygen (10L O2)
Respiratory: Rhonchi (bilateral bases)
Cardiac: Regular Rhythm and S1/S2; Negative Murmur
GI: Soft, Nontender, Nondistended and Normal Bowel Sounds
Musculoskeletal: No Clubbing, No Cyanosis and No Edema
Neuro: Awake and Alert
Psych: Calm
[2024-10-07] MEDS: NOVOLOG FLEXPEN 15 UNITS SC (10:55)
--- NOTE | 2024-10-07 10:59 | CON.PUL ---
Consultation
Consultation Request
Date/Time Consultation Requested: 10/07/2024-10:30 AM
Date/Time Consultation Performed: 10/07/2024-11 AM
Requesting Provider: Hospitalist
Performing Provider: Dr. Caceres
Reason for Consultation: shortness of breath
Medical History
-
Chief Complaint: Shortness of breath
History of Present Illness:
69-year-old male with a history of pancreatic cyst mass, pancreatitis, PAD, diabetes, hypertension, hyperlipidemia, pulmonary hypertension who is an ongoing smoker admitted with shortness of breath and cough found to have influenza, pneumonia and
loose stools-pulmonary consulted for shortness of breath/hypoxemia/pneumonia and pulmonary nodule 10/07/2024.. He states that he had Mohs surgery recently. He is not sure where he got exposed. He is vaccinated for influenza this year. He had
progressive shortness of breath, chest congestion, productive cough, dyspnea on exertion and started using her rescue inhaler. He also complains of chest pain, hemoptysis, abdominal pain, nausea, focal weakness or lower extremity swelling.
Past Medical History
Past Medical History: None (Pancreatitis. Pancreatic cystic mass. PAD. Diabetes. Hypertension. Hyperlipidemia. Pulm hypertension. Cigarette smoker.)
Social History
Tobacco: Smoker
Alcohol: None
Drug: None
Living: With Family
Occupational Exposures: No known asbestos exposure
Environmental Exposures: No known tuberculosis exposure
Family History
Family History: Reviewed & Not Pertinent
Allergies / Home Medications
Allergies
Allergy/AdvReac Type Severity Reaction Status Date / Time
No Known Allergies Allergy Verified 10/06/24 19:03
Home Medications
�Medication �Instructions �Recorded �Confirmed �Last Taken �Type
aspirin 81 mg chewable tablet (St 81 mg PO Q48H Blood Clot 06/17/12 10/06/24 01/25/14 History
Leopoldo Aspirin) Prevention/Tx
insulin glargine 100 unit/mL (3 46 units SC HS diabetes 01/26/14 10/06/24 04/29/24 History
mL) subcutaneous pen (Lantus
Solostar U-100 Insulin)
acetaminophen 500 mg tablet 1,000 mg PO DAILY pain 04/30/24 10/06/24 04/30/24 History
(Tylenol Extra Strength)
fenofibrate nanocrystallized 145 145 mg PO DAILY High Cholesterol 04/30/24 10/06/24 04/30/24 History
mg tablet (Tricor)
insulin lispro 100 unit/mL 20 sliding scale dose SC AC 04/30/24 10/07/24 Unknown History
subcutaneous pen (Humalog KwikPen diabetes
(U-100) Insulin)
lisinopril 5 mg tablet 5 mg PO DAILY blood pressure 04/30/24 10/07/24 04/30/24 History
loperamide 2 mg tablet 2 mg PO TIDPRN PRN diarrhea 04/30/24 10/07/24 04/24/24 History
metformin 500 mg tablet 1,000 mg PO DAILY diabetes 04/30/24 10/06/24 04/30/24 History
rosuvastatin 40 mg tablet (Crestor) 40 mg PO DAILY High Cholesterol 04/30/24 10/06/24 04/30/24 History
therapeutic multivitamin 1 tab PO DAILY supplement 04/30/24 10/06/24 04/30/24 History
Review of Systems
-
Unable to Obtain full review of systems at this time due to: Other (Per HPI)
Vitals / Labs / Diagnostic Testing
Vital Signs
Temp Pulse Resp BP Pulse Ox
98.2 F 89 16 141/67 92
10/06/24 19:03 10/07/24 08:43 10/07/24 08:04 10/07/24 08:43 10/07/24 08:30
Lab Data
10/07/24 05:36
10/07/24 05:36
Microbiology
10/06/24 21:13 Nasal Swab Influenza Types A & B (LEONILA) - Final
Influenza A Positive, NAAT
Diagnostic Testing:
Physical Exam
-
Exam:
Well-nourished and well-developed in no apparent distress
HEENT-atraumatic, normocephalic
Neck-supple, no JVD, no bruit
Heart-regular rate and rhythm-no murmurs, rubs or gallops
Chest with diminished breath sounds, prolonged expiratory time, expiratory rhonchi and rare basilar crackles
Abdomen-soft, nontender, nondistended, no hepatosplenomegaly
Extremities-no cyanosis, clubbing, edema and good peripheral pulses
Integument-intact, no rashes, lesions or ecchymosis
Neurology-alert and oriented, nonfocal motor and sensory exam
Assessment
-
69-year-old male with a history of pancreatic cyst mass, pancreatitis, PAD, diabetes, hypertension, hyperlipidemia, pulmonary hypertension who is an ongoing smoker admitted with shortness of breath and cough found to have influenza, pneumonia and
loose stools-pulmonary consulted for shortness of breath/hypoxemia/pneumonia and pulmonary nodule 10/07/2024.
Hypoxemic respiratory failure
[id number]-Csdoyxpsj-jcnvwlny
Influenza A
Metabolic acidosis
COPD suspected
Hyperglycemia
Leukocytosis
Conditions present prior to admission:
Pancreatitis.
Pancreatic cystic mass.
PAD-follows Dr. Lomax
Diabetes.
Hypertension.
Hyperlipidemia.
Pulm hypertension.
Cigarette smoker-recently reduced to 1 pack every 3 days
Plan
Respiratory decompensation likely due to underlying COPD and now with influenza/pneumonia
Supplemental oxygen as needed
Incentive spirometry
Mucolytic's
Mucus clearing devices
Nebulizers as needed
Observe off steroids-significant hyperglycemia-low threshold to initiate if increased wheezing
Chest x-rays and CT chest dating back to 2021 were reviewed.-His nodules are essentially stable-recommend yearly low-dose lung cancer screening CT chest-04/2025
Check cultures
Influenza a positive
Tamiflu initiated
Empiric antibiotics-ceftriaxone and doxycycline initiated
Follow cultures
Droplet precautions
Follow leukocytosis
Monitor blood sugar
Insulin supplementation as needed
Metformin continues.
Ongoing smoking cessation counseling was provided
DVT prophylaxis-on subcu heparin-increased to every 8 hours
Nutrition
Early mobilization
Outpatient pulmonary [id number], smoking cessation counseling, yearly low-dose lung cancer screening CT, etc.-He would like to follow-up locally
Diagnostic data:
Chest x-ray 12/22/2021-unchanged 7 mm nodule/granuloma right upper lobe
Chest x-ray 10/06/2024-moderate asymmetrical opacifications in the lingula and basilar segments of the left lower lobe consistent with moderate left lower lobe pneumonia and lingular pneumonia, 6 mm solid right upper lobe nodule appears unchanged
CT chest low-dose 06/30/22-7.8 mm posterior right upper lobe mildly increased compared to previous CT 2014 and nodule, new 6.6 mm nodule posterior left lower lobe, mild centrilobular emphysema, nondependent 8 mm focus within the distal trachea might
represent a polyp, increase in size compared to prior CT, partially imaged hypodense and calcified lesion within the tail of the pancreas
CT chest 02/07/2020 3-2 pulmonary nodules have remained stable supporting benign etiology, probable tracheal polyp right midline distal trachea measuring [address] chest abdomen and pelvis 04/30/2024-no acute disease in the chest abdomen pelvis, pulmonary nodules stable dating back to 06/2022, mild emphysematous changes, cystic pancreatic masses probably pseudocyst, nonobstructing bilateral renal stones,
moderate diverticulosis
Echocardiogram 05/02/2023-EF 55-60%, no valvular disease
Nuclear stress test 05/19/2023-negative for ischemia, EF 71%, low risk study
Data Reviewed
-
EKG: Report reviewed by me
Radiology: Report reviewed by me
CT Scan: Report reviewed by me
Medical Tests (Nuc Med, Echo etc): Report reviewed by me
Old Records: Reviewed
Total Time Spent with Patient (in minutes): 55
[2024-10-07 12:18] LABS: Glucose - Point of Care 446 mg/dl (70-99)
--- NOTE | 2024-10-07 13:00 | PTCARENOTE ---
Assumed care of pt at aprox 1100 as a hold in the ED. Pt here with pneumonia and + flu. Pt on 10L of midflow at 96%. Pt with no complaints. Blood sugar has been running high (see note). Pts other vitals stable. Instructed to ring for any
assistance needed. Awaiting MS bed.
[2024-10-07 13:02] LABS: Glucose 478 mg/dl (70-99)
[2024-10-07] MEDS: NOVOLOG FLEXPEN 18 UNITS SC (13:07)
[2024-10-07] MEDS: NOVOLOG FLEXPEN-MODERATE RESISTANCE 11 UNITS SC (13:07)
[2024-10-07 15:04] LABS: Glucose - Point of Care 304 mg/dl (70-99)
[2024-10-07 18:01] LABS: Glucose - Point of Care 165 mg/dl (70-99)
[2024-10-07] MEDS: VIBRAMYCIN 100 MG PO (18:13)
[2024-10-07] MEDS: NOVOLOG FLEXPEN-MODERATE RESISTANCE 1 UNITS SC (18:13)
--- NOTE | 2024-10-07 19:45 | PTCARENOTE ---
Pt lunch time accucheck came up RR high(446). Stat venous glucose done- 478- Order to give 18 units with 11 units of the sliding scale novolog. Repeat check at [address] Negron TT with result.
[2024-10-07] MEDS: ROBITUSSIN 200 MG PO (21:23)
[2024-10-07] MEDS: ROCEPHIN 1000 MG IV (21:32)
[2024-10-07] MEDS: STERILE WATER FOR INJECTION 10 ML IV (21:33)
[2024-10-07 21:48] LABS: Glucose - Point of Care 271 mg/dl (70-99)
[2024-10-07] MEDS: LANTUS 0.46 UNITS SC (21:58)
[2024-10-08 03:28] LABS: Glucose - Point of Care 241 mg/dl (70-99)
[2024-10-08 07:19] VITALS: BP 137/66
[2024-10-08 08:49] LABS: Glucose - Point of Care 257 mg/dl (70-99)
[2024-10-08] MEDS: VIBRAMYCIN 100 MG PO ×2 (08:50→19:34)
[2024-10-08] MEDS: THERAGRAN 1 TABLET PO (08:50)
[2024-10-08] MEDS: GLUCOPHAGE 1000 MG PO (08:50)
[2024-10-08] MEDS: ZESTRIL 5 MG PO (08:50)
[2024-10-08] MEDS: TYLENOL 1000 MG PO ×3 (08:50→21:13)
[2024-10-08] MEDS: HEPARIN 5000 UNITS SC ×2 (08:51→19:34)
--- NOTE | 2024-10-08 10:03 | W.PN.HOSP.TC ---
Addendum entered and electronically signed by Valery Negron MD 10/08/24 16:03:
corrections to note below:
acute hypoxemic respiratory failure (10 L O2 is not insufficiency)
sepsis POA due to pna/influenza
Original Note:
Today's Communication/Plan
-
wean O2 as able
cont abx
cont tamiflu
repeat CXR in AM
Assessment / Plan
Assessment / Plan
pt is a 69 year old male
Influenza A infection--tested neg on 10/03 at PCP--positive in ED 10/06--will treat with Tamiflu
Acute Hypoxemic respiratory insufficiency secondary to moderate left lower lobe pneumonia likely postviral pneumonia along with influenza A positive--follow cultures--on 10L O2, wean as tolerated--apprec pulm --Ceftriaxone/doxycycline--repeat CXR in
AM
pulmonary nodule--noted on CXR--apprec pulm
Pulmonary hypertension
Hyperlipidemia--Continue fenofibrate
History of pancreatitis
History of pancreatic cyst mass
PAD--Continue aspirin, statin
Type 2 diabetes--restarted metformin--Continue Lantus --Moderate dose sliding scale--did receive solumedrol in ED--blood sugars more in control at this point
Essential Hypertension--Continue lisinopril
code status --DNR/DNI
DVT prophy�heparin
Anticipated Discharge: > 48 hours
Subjective/Interval History
-
Date of Service: October 08, 2024
pt tells me I am wrong when telling him we need to wean O2--says puldaly wants him on 10L
Objective Data
-
Vital Signs:
max temp for 24 hours
10/07/24
17:12
Temp 97.7 F
Vital Signs
Temp Pulse Resp BP Pulse Ox
97.6 F 96 26 137/66 96
10/08/24 07:22 10/07/24 22:47 10/07/24 22:47 10/08/24 08:50 10/08/24 07:22
I&O
10/07/24 10/08/24 10/09/24
06:59 06:59 06:59
Intake Total 480 / 480
Output Total 500 / 500 950 / 950
Balance -500 / -500 -470 / -470
Review of Systems
-
All other systems: Reviewed and negative
Respiratory: Reports Trouble Breathing
Physical Exam
-
General: Well Developed, Well Nourished and No Apparent Distress
HEENT: Normocephalic, Atraumatic and Oxygen (10L)
Respiratory: Clear to Auscultation and Decreased Breath Sounds; Negative Wheezes
Cardiac: Regular Rhythm and S1/S2; Negative Murmur
GI: Soft, Nontender, Nondistended and Normal Bowel Sounds
Musculoskeletal: No Clubbing, No Cyanosis and No Edema
Skin: Warm
Neuro: Awake and Alert
Psych: Calm
--- NOTE | 2024-10-08 10:08 | CM ---
Patient seen at bedside in ED with physician. Patient eating and only question was about ability to visit. Patient currently on 10 liters of O2 and does not have home O2 at [facility] independent apartments. CM will continue to follow for
discharge planning needs.
Plan; home with VN vs home with no needs; watch for home O2 needs
[2024-10-08] MEDS: NOVOLOG FLEXPEN-MODERATE RESISTANCE 5 UNITS SC (11:03)
[2024-10-08] MEDS: CRESTOR 40 MG PO (11:03)
[2024-10-08] MEDS: TRICOR 145 MG PO (11:03)
[2024-10-08] MEDS: DUONEB 3 ML INH ×3 (11:41→19:03)
--- NOTE | 2024-10-08 11:42 | W.PN.PUL.V3 ---
Today's Communication / Plan
-
Wean oxygen
Add steroids
Continue nebulizers and mucolytic's
Antibiotics
Assessment
-
69-year-old male with a history of pancreatic cyst mass, pancreatitis, PAD, diabetes, hypertension, hyperlipidemia, pulmonary hypertension who is an ongoing smoker admitted with shortness of breath and cough found to have influenza, pneumonia and
loose stools-pulmonary consulted for shortness of breath/hypoxemia/pneumonia and pulmonary nodule 10/07/2024.
Hypoxemic respiratory failure
Gbkdbggyg-Pzzyvjbws-llfcgfzw
Influenza A
Metabolic acidosis
COPD suspected
Hyperglycemia
Leukocytosis
Conditions present prior to admission:
Pancreatitis.
Pancreatic cystic mass.
PAD-follows Dr. Lomax
Diabetes.
Hypertension.
Hyperlipidemia.
Pulm hypertension.
Cigarette smoker-recently reduced to 1 pack every 3 days
Plan
Respiratory decompensation likely due to underlying COPD and now with influenza/pneumonia
Supplemental oxygen as needed-currently on 10 L mid flow
Incentive spirometry encouraged
Mucolytic's
Mucus clearing devices
Nebulizers as needed
Steroids will be added-ongoing wheezing and significant hypoxemia
Chest x-rays and CT chest dating back to 2021 were reviewed.-His nodules are essentially stable-recommend yearly low-dose lung cancer screening CT chest-04/2025
Check cultures
Influenza a positive
Unable to produce sputum
Tamiflu initiated
Empiric antibiotics-ceftriaxone and doxycycline initiated
Follow cultures
Droplet precautions
Follow leukocytosis
Monitor blood sugar
Insulin supplementation as needed
Metformin continues.
Ongoing smoking cessation counseling was provided
DVT prophylaxis-on subcu heparin-increased to every 8 hours
Nutrition
Early mobilization
Reviewed with nursing
Outpatient pulmonary [id number], smoking cessation counseling, yearly low-dose lung cancer screening CT, etc.-He would like to follow-up locally
Diagnostic data:
Chest x-ray 12/22/2021-unchanged 7 mm nodule/granuloma right upper lobe
Chest x-ray 10/06/2024-moderate asymmetrical opacifications in the lingula and basilar segments of the left lower lobe consistent with moderate left lower lobe pneumonia and lingular pneumonia, 6 mm solid right upper lobe nodule appears unchanged
CT chest low-dose 06/30/22-7.8 mm posterior right upper lobe mildly increased compared to previous CT 2015 and nodule, new 6.6 mm nodule posterior left lower lobe, mild centrilobular emphysema, nondependent 8 mm focus within the distal trachea might
represent a polyp, increase in size compared to prior CT, partially imaged hypodense and calcified lesion within the tail of the pancreas
CT chest 02/07/2020 3-2 pulmonary nodules have remained stable supporting benign etiology, probable tracheal polyp right midline distal trachea measuring [address] chest abdomen and pelvis 04/30/2024-no acute disease in the chest abdomen pelvis, pulmonary nodules stable dating back to 06/2022, mild emphysematous changes, cystic pancreatic masses probably pseudocyst, nonobstructing bilateral renal stones,
moderate diverticulosis
Echocardiogram 05/02/2023-EF 55-60%, no valvular disease
Nuclear stress test 05/19/2023-negative for ischemia, EF 71%, low risk study
Subjective Data
-
Date of Service:
Date of Service: October 08, 2024
Chief Complaint: Pulmonary Follow Up and Dyspnea Follow Up
Subjective:
Slept better, still has chest congestion, wheezing, increased FiO2 requirements, no chest pain, abdominal pain or increased lower extremity swelling
Review of Systems
General: Other (Per HPI)
Objective Data
Data Reviewed
Vital Signs / I&O:
Vital Signs
Temp Pulse Resp BP Pulse Ox
97.6 F 96 26 137/66 96
10/08/24 07:22 10/07/24 22:47 10/07/24 22:47 10/08/24 08:50 10/08/24 07:22
Intake and Output
03/05/2410/08/24 10/09/24
06:59 06:59 06:59
Intake Total 480 / 480
Output Total 500 / 500 950 / 950
Balance -500 / -500 -470 / -470
SaO2: 96
Nasal Cannula flow liters per minute: 10
Physical Exam
General: Respiratory Distress (n) and Comfortable
HEENT: Normocephalic and Anicteric
Cardiovascular: Regular Rhythm
Respiratory: Wheeze, Crackles (Basilar), Rhonchi (expiratory), Non-Labored Respirations, Accessory Resp Muscle Use (n) and Stridor
GI: Soft, Non Distended and Non Tender
Neurology: Awake, Alert and No Motor Deficits
Skin: Warm, Good Color, Cyanosis (n), Jaundice (n) and Rash (n)
Labs/Micro/Reports
Lab Data
10/07/24 05:36
10/07/24 12:22
Microbiology
10/06/24 21:13 Nasal Swab Influenza Types A & B (LEONILA) - Final
Influenza A Positive, NAAT
[2024-10-08 13:25] LABS: Glucose - Point of Care 369 mg/dl (70-99)
[2024-10-08] MEDS: NOVOLOG FLEXPEN-MODERATE RESISTANCE 9 UNITS SC (13:25)
--- NOTE | 2024-10-08 14:04 | PN.CDI ---
CDI
- -
CDI:
Physician Documentation Request
Admit Date: 10/06/24 23:53
Dear Doctor Jamil,
Clinical Indicators:
Patient admitted with Influenza A with likely post viral pneumonia.
10/08 PN,'Acute Hypoxemic respiratory insufficiency'
Fi02 requirements:
10/07/24
03:39 10/07/24
15:58 10/08/24
07:22
Nasal Cannula flow liters per minute 10 10 10
Please clarify which of the following accurately represents the patient's respiratory status:
Acute hypoxic respiratory failure
Acute hypoxemic respiratory insufficiency
Other, please specify
Additional information for Respiratory Failure:
Recognized criteria for Respiratory Failure (Source: [facility] Hospitalist May 2013)
ABGs: (1 or more) Symptoms Please indicate type if known
1. p)2 <60 or RA SPO2 <91% on RA 1. Tachypnea, SOB, dyspnea Hypoxic
2. pCO2 50 and pH <7.35 2. Use of accessory muscles Hypercapnic
3. pO2 decrease of pCO2 increase by 3. Pallor or cyanosis Hypoxic and Hypercapnic
10 mmHg from baseline if known 4. Anxiety or restlessness Unable to determine
5. Unable to speak in full sentences
Supplemental O2 of > 40% (5LPM) Intubation is not required
Use of terms such as suspected, likely, concern for, or probable (associated with a specific diagnosis that is being evaluated, monitored, or treated as if it exists) are acceptable and can be coded in the inpatient setting, when documented at the
time of discharge.
Thank you,
Nuris Ray RN BSN
CDI Specialist
available via tiger text
Please use your independent medical judgment in providing your response.
--- NOTE | 2024-10-08 14:12 | PN.CDI ---
CDI
- -
CDI:
Physician Documentation Request
Admit Date: 10/06/24 23:53
Dear Doctor Jamil,
Clinical Indicators:
Patient admitted with Influenza A with likely post viral pneumonia.
WBC on admission:
10/06/24
20:30
WBC 14.5 H
RR trend on admission:
10/06/24
20:12 10/06/24
20:15 10/06/24
21:00
Resp Rate 29 28 24
10/06/24
21:30 10/06/24
22:15 10/06/24
23:45
Resp Rate 24 25 22
Please clarify which of the following most accurately describes the status of the patient's infection:
Sepsis, POA
- Systemic manifestations of infection, with 2 or more SIRS criteria which include:
- Fever >100.4 degrees F or hypothermia < 96.8 degrees F
- Leukocytosis - WBC > 12,000 or leukopenia - WBC < 4,000 or > 10% bands
- Tachycardia > 90 beats per minute
- Tachypnea - RR > 20 breaths per minute or PaCO2 , 32mmHg
Source: [employer] Manual 2013
Influenza A w/likely post viral pneumonia only, Without Systemic Illness
Other, please specify
Use of terms such as suspected, likely, concern for, or probable (associated with a specific diagnosis that is being evaluated, monitored, or treated as if it exists) are acceptable and can be coded in the inpatient setting, when documented at the
time of discharge.
Thank you,
Nuris Ray RN BSN
CDI Specialist
available via tiger text
Please use your independent medical judgment in providing your response.
[2024-10-08] MEDS: DECADRON 4 MG IV ×2 (14:22→21:12)
[2024-10-08 16:02] VITALS: BP 132/62
[2024-10-08 16:02] LABS: Glucose - Point of Care 313 mg/dl (70-99)
[2024-10-08] MEDS: NOVOLOG FLEXPEN-MODERATE RESISTANCE 7 UNITS SC (16:19)
[2024-10-08] MEDS: STERILE WATER FOR INJECTION 10 ML IV (21:12)
[2024-10-08] MEDS: ROCEPHIN 1000 MG IV (21:12)
[2024-10-08 22:05] LABS: Glucose - Point of Care 459 mg/dl (70-99)
[2024-10-08 22:45] LABS: Glucose 472 mg/dl (70-99)
[2024-10-08] MEDS: LANTUS 0.46 UNITS SC (23:04)
[2024-10-08 23:12] VITALS: BP 126/66
[2024-10-08] MEDS: NOVOLOG FLEXPEN 10 UNITS SC (23:12)
[2024-10-08] MEDS: LOW STRENGTH ASPIRIN 81 MG PO (23:13)
[2024-10-09 01:18] LABS: Glucose - Point of Care 359 mg/dl (70-99)
[2024-10-09] MEDS: DECADRON 4 MG IV ×3 (05:47→21:05)
[2024-10-09 07:18] LABS: Glucose - Point of Care 312 mg/dl (70-99)
[2024-10-09] MEDS: NOVOLOG FLEXPEN-MODERATE RESISTANCE 7 UNITS SC ×2 (07:25→12:24)
[2024-10-09] MEDS: HEPARIN 5000 UNITS SC ×2 (07:26→20:53)
[2024-10-09] MEDS: VIBRAMYCIN 100 MG PO ×2 (07:26→20:53)
[2024-10-09] MEDS: ZESTRIL 5 MG PO (07:27)
[2024-10-09] MEDS: TYLENOL 1000 MG PO (07:27)
[2024-10-09] MEDS: GLUCOPHAGE 1000 MG PO (07:27)
[2024-10-09] MEDS: TRICOR 145 MG PO (07:27)
[2024-10-09] MEDS: CRESTOR 40 MG PO (07:27)
[2024-10-09] MEDS: THERAGRAN 1 TABLET PO (07:27)
[2024-10-09 07:30] VITALS: BP 145/73
[2024-10-09] MEDS: DUONEB 3 ML INH ×4 (07:35→19:52)
[2024-10-09 08:09] LABS: Hematocrit 42.7 % (39.0-52.0); Hemoglobin 14.5 g/dL (13.0-18.0); Mean Corpuscular Hgb 30.1 pg (27.0-31.0); Mean Corpuscular Volume 88.6 fL (80.0-94.0); Mean Platelet Volume 9.4 fL (7.4-10.4); Platelet Count 505 10^3/uL (130-400); Red Blood Cell Count 4.82 10^6/uL (4.70-6.10); Red Cell Dist. Width 13.2 % (11.5-14.5); White Blood Cell Count 13.2 10^3/uL (4.8-10.8)
[2024-10-09 08:43] LABS: Blood Urea Nitrogen 31 mg/dl (9-20); Calcium 10.2 mg/dl (8.4-10.2); Carbon Dioxide 24 mmol/L (22-30); Chloride 98 mmol/L (98-107); Estimated Creatinine Clearance 73 ml/min; Glucose 344 mg/dl (70-99); Potassium 5.7 mmol/L (3.5-5.1); Sodium 134 mmol/L (135-145); eGFR > 60.00
--- NOTE | 2024-10-09 09:03 | W.PN.PUL.V3 ---
Today's Communication / Plan
-
Mucus clearing devices
Intensify mucolytic's
No change in Decadron or nebulizers
Wean oxygen
Assessment
-
69-year-old male with a history of pancreatic cyst mass, pancreatitis, PAD, diabetes, hypertension, hyperlipidemia, pulmonary hypertension who is an ongoing smoker admitted with shortness of breath and cough found to have influenza, pneumonia and
loose stools-pulmonary consulted for shortness of breath/hypoxemia/pneumonia and pulmonary nodule 10/07/2024.
Hypoxemic respiratory failure
Tfagzdhau-Ykcycddba-vnyynoup
Influenza A
Metabolic acidosis
COPD suspected
Hyperglycemia
Leukocytosis
Conditions present prior to admission:
Pancreatitis.
Pancreatic cystic mass.
PAD-follows Dr. Lomax
Diabetes.
Hypertension.
Hyperlipidemia.
Pulm hypertension.
Cigarette smoker-recently reduced to 1 pack every 3 days
Plan
Respiratory decompensation likely due to underlying COPD and now with influenza/pneumonia
Supplemental oxygen as needed-currently on 8-10 L mid flow-attempt to wean
Incentive spirometry encouraged
Flutter added
Mucolytic's-intensified
Mucus clearing devices
Nebulizers continue
Decadron 4 mg IV every 8 hours-no change-hopefully can change to prednisone in the next 24 hours
Chest x-rays and CT chest dating back to 2021 were reviewed.-His nodules are essentially stable-recommend yearly low-dose lung cancer screening CT chest-04/2025
Check cultures
Influenza a positive
Unable to produce sputum
Tamiflu initiated-Finite course
Empiric antibiotics-ceftriaxone and doxycycline initiated
Follow cultures
Droplet precautions
Follow leukocytosis
Monitor blood sugar
Insulin supplementation as needed
Metformin continues.
Ongoing smoking cessation counseling was provided
DVT prophylaxis-on subcu heparin-increased to every 8 hours
Nutrition
Early mobilization
Reviewed with nursing as well as hospitalist-Dr. Negron
Outpatient pulmonary [id number]-[id number], smoking cessation counseling, yearly low-dose lung cancer screening CT, etc.-He would like to follow-up locally
Diagnostic data:
Chest x-ray 12/22/2021-unchanged 7 mm nodule/granuloma right upper lobe
Chest x-ray 10/06/2024-moderate asymmetrical opacifications in the lingula and basilar segments of the left lower lobe consistent with moderate left lower lobe pneumonia and lingular pneumonia, 6 mm solid right upper lobe nodule appears unchanged
CT chest low-dose 06/30/22-7.8 mm posterior right upper lobe mildly increased compared to previous CT 2014 and nodule, new 6.6 mm nodule posterior left lower lobe, mild centrilobular emphysema, nondependent 8 mm focus within the distal trachea might
represent a polyp, increase in size compared to prior CT, partially imaged hypodense and calcified lesion within the tail of the pancreas
CT chest 02/07/2020 3-2 pulmonary nodules have remained stable supporting benign etiology, probable tracheal polyp right midline distal trachea measuring [address] chest abdomen and pelvis 04/30/2024-no acute disease in the chest abdomen pelvis, pulmonary nodules stable dating back to 06/2022, mild emphysematous changes, cystic pancreatic masses probably pseudocyst, nonobstructing bilateral renal stones,
moderate diverticulosis
Echocardiogram 05/02/2023-EF 55-60%, no valvular disease
Nuclear stress test 05/19/2023-negative for ischemia, EF 71%, low risk study
Subjective Data
-
Date of Service:
Date of Service: October 09, 2024
Chief Complaint: Pulmonary Follow Up and Dyspnea Follow Up
Subjective:
Slept well, still has shortness of breath with exertion, still on increased FiO2 requirements, difficulties mobilizing secretions, no chest pain or abdominal pain
Review of Systems
General: Other (Per HPI)
Objective Data
Data Reviewed
Vital Signs / I&O:
Vital Signs
Temp Pulse Resp BP Pulse Ox
97.6 F 86 18 145/73 95
10/09/24 07:30 03/12/25 07:37 10/09/24 07:37 10/09/24 07:30 10/09/24 07:30
Intake and Output
10/08/24 10/09/24 10/10/24
06:59 06:59 06:59
Intake Total 480 / 480
Output Total 950 / 950
Balance -470 / -470
SaO2: 95
Nasal Cannula flow liters per minute: 8
Physical Exam
General: Respiratory Distress (n) and Comfortable
HEENT: Normocephalic and Anicteric
Cardiovascular: Regular Rhythm
Respiratory: Wheeze, Crackles (Basilar), Rhonchi (expiratory), Non-Labored Respirations, Accessory Resp Muscle Use (n) and Stridor
GI: Soft, Non Distended and Non Tender
Neurology: Awake, Alert and No Motor Deficits
Skin: Warm, Good Color, Cyanosis (n), Jaundice (n) and Rash (n)
Labs/Micro/Reports
Lab Data
10/09/24 07:42
10/09/24 07:42
Microbiology
10/06/24 21:13 Nasal Swab Influenza Types A & B (LEONILA) - Final
Influenza A Positive, NAAT
--- NOTE | 2024-10-09 09:03 | PN.DE.MGMTRT ---
Insulin Management
- -
10/09/2024 Diabetes Management Consult
Patient admitted 10/06 c/o cough x 1 week with SOB. Flu +, pneumonia, sepsis, acute hypoxic respiratory failure. PMH pancreatic cyst/mass, pancreatitis, PAD, diabetes, HTN, HLD, pulmonary HTN, ongoing smoker. Prior to admission was taking humalog
20 units ss AC metformin 1000 mg daily and lantus 46 units @ HS. A1C on admission 8.5%. CR .9, eGFR > 60.
Patient is awake alert and able to discuss diabetes care.
Currently receiving Dexamethasone 4 mg Q 8 hours contributing to hyperglycemia. Insulin regimen 46 units lantus @ hs with corrective insulin AC. Glucose range 241 to 472.
Will increase HS lantus to 50 units, start novolog 15 units now and AC with moderate corrective insulin with metformin 1000 mg daily. Pre lunch glucose 346, will increase AC novolog to 20 units with moderate corrective.
Discussed with nurse.
Will follow.
Diabetes History
- -
Type of Diabetes: 2 requiring insulin
Pre-Admission Diabetes Regimen
10/09/24
07:42
Creatinine 0.9
Lab Results
Hemoglobin A1c 8.5 % (4.0-5.6) H 10/07/24 05:36
Insulin Pump Settings
IP Diabetes Regimen
10/08/24 10/08/24 10/08/24
13:24 16:00 22:04
Glucose
POC Glucose 369 H 313 H 459 H*
10/08/24 10/09/24 10/09/24
22:18 01:16 07:13
Glucose 472 H*
POC Glucose 359 H 312 H
10/09/24
07:42
Glucose 344 H
POC Glucose
Patient Education
[2024-10-09] MEDS: NOVOLOG FLEXPEN 15 UNITS SC ×2 (09:21→12:23)
[2024-10-09 12:20] LABS: Glucose - Point of Care 346 mg/dl (70-99)
--- NOTE | 2024-10-09 12:21 | W.PN.HOSP.TC ---
Today's Communication/Plan
-
acapella and IS started
wean O2
consult DM TRAFFIC COUNTER
Assessment / Plan
Assessment / Plan
pt is a 69 year old male
sepsis (POA) due to Influenza A infection/pna--tested neg on 10/03 at PCP--positive in ED 10/06--will treat with Tamiflu
Acute Hypoxemic respiratory failure secondary to moderate left lower lobe pneumonia likely postviral pneumonia along with influenza A positive--cultures negative--on 5L O2, wean as tolerated--apprec pulm --Ceftriaxone/doxycycline--repeat CXR about
the same
pulmonary nodule--noted on CXR--apprec pulm
Pulmonary hypertension
Hyperlipidemia--Continue fenofibrate
History of pancreatitis
History of pancreatic cyst mass
PAD--Continue aspirin, statin
Type 2 diabetes--restarted metformin--Continue Lantus --Moderate dose sliding scale--did receive solumedrol in ED, pulm started steroids and BS now more elevated--consult DM TRAFFIC COUNTER for assistance
Essential Hypertension--Continue lisinopril
code status --DNR/DNI
DVT prophy�heparin
Anticipated Discharge: > 48 hours
Subjective/Interval History
-
Date of Service: October 09, 2024
pt down to 5L O2--no c/o
Objective Data
-
Labs:
Laboratory Results
10/09/24
07:42
WBC 13.2 H
Hgb 14.5
Hct 42.7
Plt Count 505 H D
Sodium 134 L
Potassium 5.7 H
Chloride 98
Carbon Dioxide 24
BUN 31 H
Creatinine 0.9
Glucose 344 H
Calcium 10.2
Vital Signs:
max temp for 24 hours
10/09/24
07:30
Temp 97.6 F
Vital Signs
Temp Pulse Resp BP Pulse Ox
97.6 F 88 16 145/73 95
10/09/24 07:30 10/09/24 11:20 10/09/24 11:20 10/09/24 07:30 10/09/24 09:03
I&O
10/08/24 10/09/24 10/10/24
06:59 06:59 06:59
Intake Total 480 / 480
Output Total 950 / 950
Balance -470 / -470
Review of Systems
-
All other systems: Reviewed and negative
Physical Exam
-
General: Well Developed, Well Nourished and No Apparent Distress
HEENT: Normocephalic, Atraumatic and Oxygen (5L)
Respiratory: Clear to Auscultation; Negative Wheezes or Rhonchi
Cardiac: Regular Rhythm and S1/S2; Negative Murmur
GI: Soft, Nontender, Nondistended and Normal Bowel Sounds
Musculoskeletal: No Clubbing, No Cyanosis and No Edema
Neuro: Awake and Alert
Psych: Calm
--- NOTE | 2024-10-09 15:07 | CM ---
Patient seen at bedside with physician. Patient continues on O2 at this time. CM will continue to follow for discharge planning needs.
Plan; home with VN watch for home O2 needs
[2024-10-09 15:38] VITALS: BP 146/60
[2024-10-09 16:25] LABS: Glucose - Point of Care 295 mg/dl (70-99)
[2024-10-09] MEDS: NOVOLOG FLEXPEN 20 UNITS SC (16:27)
[2024-10-09] MEDS: NOVOLOG FLEXPEN-MODERATE RESISTANCE 5 UNITS SC (16:28)
[2024-10-09] MEDS: MUCINEX 1200 MG PO (20:53)
[2024-10-09] MEDS: STERILE WATER FOR INJECTION 10 ML IV (21:05)
[2024-10-09] MEDS: ROCEPHIN 1000 MG IV (21:05)
[2024-10-09 21:26] LABS: Glucose - Point of Care 238 mg/dl (70-99)
[2024-10-09] MEDS: LANTUS 0.5 UNITS SC (21:49)
[2024-10-09 22:51] VITALS: BP 131/70
[2024-10-10] MEDS: DECADRON 4 MG IV ×3 (06:05→20:26)
[2024-10-10 07:30] VITALS: BP 125/69
[2024-10-10] MEDS: DUONEB 3 ML INH ×4 (07:55→20:37)
[2024-10-10 08:04] LABS: Hematocrit 42.9 % (39.0-52.0); Hemoglobin 14.5 g/dL (13.0-18.0); Mean Corp Hgb Conc. 33.8 g/dL (33.0-37.0); Mean Corpuscular Hgb 29.8 pg (27.0-31.0); Mean Corpuscular Volume 88.3 fL (80.0-94.0); Mean Platelet Volume 9.5 fL (7.4-10.4); Platelet Count 544 10^3/uL (130-400); Red Blood Cell Count 4.86 10^6/uL (4.70-6.10); Red Cell Dist. Width 13.2 % (11.5-14.5); White Blood Cell Count 16.8 10^3/uL (4.8-10.8)
[2024-10-10] MEDS: GLUCOPHAGE 1000 MG PO (08:05)
[2024-10-10] MEDS: VIBRAMYCIN 100 MG PO ×2 (08:05→20:27)
[2024-10-10] MEDS: ZESTRIL 5 MG PO (08:05)
[2024-10-10] MEDS: TRICOR 145 MG PO (08:05)
[2024-10-10] MEDS: CRESTOR 40 MG PO (08:05)
[2024-10-10] MEDS: TYLENOL 1000 MG PO (08:05)
[2024-10-10] MEDS: MUCINEX 1200 MG PO ×2 (08:05→20:27)
[2024-10-10] MEDS: THERAGRAN 1 TABLET PO (08:05)
[2024-10-10] MEDS: HEPARIN 5000 UNITS SC ×2 (08:05→20:26)
[2024-10-10] MEDS: NOVOLOG FLEXPEN 20 UNITS SC (08:10)
[2024-10-10] MEDS: NOVOLOG FLEXPEN-MODERATE RESISTANCE 3 UNITS SC (08:10)
[2024-10-10 08:12] LABS: Glucose - Point of Care 228 mg/dl (70-99)
[2024-10-10 09:03] LABS: Blood Urea Nitrogen 33 mg/dl (9-20); Calcium 9.9 mg/dl (8.4-10.2); Carbon Dioxide 24 mmol/L (22-30); Chloride 99 mmol/L (98-107); Estimated Creatinine Clearance 73 ml/min; Glucose 229 mg/dl (70-99); Magnesium 1.9 mg/dl (1.6-2.3); Potassium 5.4 mmol/L (3.5-5.1); Sodium 134 mmol/L (135-145); eGFR > 60.00
--- NOTE | 2024-10-10 09:16 | PN.DE.MGMTRT ---
Insulin Management
- -
10/10/2024 Diabetes Management Consult Follow up
Patient admitted 10/06 c/o cough x 1 week with SOB. Flu +, pneumonia, sepsis, acute hypoxic respiratory failure. PMH pancreatic cyst/mass, pancreatitis, PAD, diabetes, HTN, HLD, pulmonary HTN, ongoing smoker. Prior to admission was taking humalog
20 units ss AC metformin 1000 mg daily and lantus 46 units @ HS. A1C on admission 8.5%. CR .9, eGFR > 60.
Patient is awake alert and able to discuss diabetes care.
Currently receiving Dexamethasone 4 mg Q 8 hours contributing to hyperglycemia. AC novolog 15 units with moderate corrective started 10/09. Glucose range prior to insulin adjustment > 300, pre dinner 295, HS 238. Received 50 units lantus @ HS.
Fasting glucose 228.
Will increase HS lantus to 55 units, increase novolog to 24 units AC with moderate corrective insulin with metformin 1000 mg daily.
Discussed with nurse.
Will follow.
Diabetes History
- -
Type of Diabetes: 2 requiring insulin
Pre-Admission Diabetes Regimen
10/10/24
07:14
Creatinine 0.9
Lab Results
Hemoglobin A1c 8.5 % (4.0-5.6) H 10/07/24 05:36
Insulin Pump Settings
IP Diabetes Regimen
10/09/24 10/09/24 10/09/24
12:12 16:24 21:25
Glucose
POC Glucose 346 H 295 H 238 H
10/10/24 10/10/24
07:14 08:11
Glucose 229 H
POC Glucose 228 H
Meal type: Breakfast
Amount consumed: 100%
Patient Education
--- NOTE | 2024-10-10 09:19 | W.PN.PUL.V3 ---
Today's Communication / Plan
-
.
Wean FiO2.
Workup nasal congestion.
Mucolytic some mucus clearing devices.
Decrease Decadron.
Continue nebulizers
Assessment
-
69-year-old male with a history of pancreatic cyst mass, pancreatitis, PAD, diabetes, hypertension, hyperlipidemia, pulmonary hypertension who is an ongoing smoker admitted with shortness of breath and cough found to have influenza, pneumonia and
loose stools-pulmonary consulted for shortness of breath/hypoxemia/pneumonia and pulmonary nodule 10/07/2024.
Hypoxemic respiratory failure
[id number]-[id number]
Influenza A
Metabolic acidosis
COPD suspected
Hyperglycemia
Leukocytosis
Conditions present prior to admission:
Pancreatitis.
Pancreatic cystic mass.
PAD-follows Dr. Lomax
Diabetes.
Hypertension.
Hyperlipidemia.
Pulm hypertension.
Cigarette smoker-recently reduced to 1 pack every 3 days
Plan
Respiratory decompensation likely due to underlying COPD and now with influenza/pneumonia
Supplemental oxygen as needed-currently on 8-10 L mid flow-attempt to wean
Incentive spirometry encouraged
Flutter encouraged
Mucolytic's continue as well
Mucus clearing devices
Nebulizers continue
Decadron 4 mg IV every 8 hours--Reduced to every 12 hours.
Flonase and saline nasal irrigations
Chest x-rays and CT chest dating back to 2021 were reviewed.-His nodules are essentially stable-recommend yearly low-dose lung cancer screening CT chest-04/2025
Cultures reviewed
Influenza a positive
Unable to produce sputum
Tamiflu initiated-Finite course
Empiric antibiotics-ceftriaxone and doxycycline initiated-finite course
Follow cultures
Droplet precautions per protocol
Follow leukocytosis
Monitor blood sugar
Insulin supplementation as needed
Metformin continues.
Ongoing smoking cessation counseling was provided
DVT prophylaxis-on subcu heparin-increased to every 8 hours
Nutrition
Early mobilization
Reviewed with nursing as well as hospitalist-Dr. Negron
Outpatient pulmonary [id number], smoking cessation counseling, yearly low-dose lung cancer screening CT, etc.-He would like to follow-up locally
Diagnostic data:
Chest x-ray 12/22/2021-unchanged 7 mm nodule/granuloma right upper lobe
Chest x-ray 10/06/2024-moderate asymmetrical opacifications in the lingula and basilar segments of the left lower lobe consistent with moderate left lower lobe pneumonia and lingular pneumonia, 6 mm solid right upper lobe nodule appears unchanged
CT chest low-dose 06/30/22-7.8 mm posterior right upper lobe mildly increased compared to previous CT 2014 and nodule, new 6.6 mm nodule posterior left lower lobe, mild centrilobular emphysema, nondependent 8 mm focus within the distal trachea might
represent a polyp, increase in size compared to prior CT, partially imaged hypodense and calcified lesion within the tail of the pancreas
CT chest 02/07/2020 3-2 pulmonary nodules have remained stable supporting benign etiology, probable tracheal polyp right midline distal trachea measuring [address] chest abdomen and pelvis 04/30/2024-no acute disease in the chest abdomen pelvis, pulmonary nodules stable dating back to 06/2022, mild emphysematous changes, cystic pancreatic masses probably pseudocyst, nonobstructing bilateral renal stones,
moderate diverticulosis
Echocardiogram 05/02/2023-EF 55-60%, no valvular disease
Nuclear stress test 05/19/2023-negative for ischemia, EF 71%, low risk study
Subjective Data
-
Date of Service:
Date of Service: October 10, 2024
Chief Complaint: Pulmonary Follow Up and Dyspnea Follow Up
Subjective:
Complains of nasal congestion, no complaints of chest pain, minimal productive cough, not sure if incentive spirometry and flutter are helping, no Lower extremity swelling
Review of Systems
General: Other ( per HPI)
Objective Data
Data Reviewed
Vital Signs / I&O:
Vital Signs
Temp Pulse Resp BP Pulse Ox
98.0 F 83 18 125/69 95
10/10/24 07:30 10/10/24 07:56 10/10/24 07:56 10/10/24 07:30 10/10/24 07:56
Intake and Output
10/09/24 10/10/24 10/11/24
06:59 06:59 06:59
Intake Total 1080 / 1080
Output Total 1300 / 1300
Balance -220 / -220
SaO2: 95
Nasal Cannula flow liters per minute: 5
Physical Exam
General: Respiratory Distress (n) and Comfortable
HEENT: Normocephalic and Anicteric
Cardiovascular: Regular Rhythm
Respiratory: Wheeze, Crackles (Basilar), Rhonchi (expiratory), Non-Labored Respirations, Accessory Resp Muscle Use (n) and Stridor
GI: Soft, Non Distended and Non Tender
Neurology: Awake, Alert and No Motor Deficits
Skin: Warm, Good Color, Cyanosis (n), Jaundice (n) and Rash (n)
Labs/Micro/Reports
Lab Data
10/10/24 07:14
10/10/24 07:14
[2024-10-10 11:56] LABS: Glucose - Point of Care 272 mg/dl (70-99)
--- NOTE | 2024-10-10 12:16 | CM ---
Addendum entered by Kamilla Ndiaye 10/10/24 15:00:
Patient now on room air for possible discharge tomorrow. Patient plan is for home with no needs. CM will continue to follow for discharge planning needs.
Original Note:
Patient seen at bedside with physician. patient on 3 liters of O2. Patient does not have home O2. Patient uncertain of VN option at this time, patient would prefer not to have medical care from [facility]. CM will continue to follow for discharge
planning needs.
Plan; home with VN vs home with no needs
[2024-10-10] MEDS: NOVOLOG FLEXPEN 24 UNITS SC ×2 (12:40→17:12)
[2024-10-10] MEDS: NOVOLOG FLEXPEN-MODERATE RESISTANCE 5 UNITS SC (12:41)
[2024-10-10] MEDS: OCEAN, SALINE MIST 1 SPRAYS NASAL ×2 (12:41→17:18)
--- NOTE | 2024-10-10 13:36 | W.PN.HOSP.TC ---
Today's Communication/Plan
-
add symbicort
wean O2
cont abx
Assessment / Plan
Assessment / Plan
pt is a 69 year old male
sepsis (POA) due to Influenza A infection/pna--tested neg on 10/03 at PCP--positive in ED 10/06
Acute Hypoxemic respiratory failure secondary to moderate left lower lobe pneumonia likely postviral pneumonia along with influenza A positive--cultures negative--on 5L O2, wean as tolerated--apprec pulm --Ceftriaxone/doxycycline--repeat CXR about
the same
pulmonary nodule--noted on CXR--apprec pulm
Pulmonary hypertension
Hyperlipidemia--Continue fenofibrate
History of pancreatitis
History of pancreatic cyst mass
PAD--Continue aspirin, statin
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
Essential Hypertension--Continue lisinopril
code status --DNR/DNI
DVT prophy�heparin
Anticipated Discharge: > 48 hours
Subjective/Interval History
-
Date of Service: October 10, 2024
pt doing a bit better--coughing but not bringing anything up
Objective Data
-
Labs:
Laboratory Results
10/10/24
07:14
WBC 16.8 H
Hgb 14.5
Hct 42.9
Plt Count 544 H
Sodium 134 L
Potassium 5.4 H
Chloride 99
Carbon Dioxide 24
BUN 33 H
Creatinine 0.9
Glucose 229 H
Calcium 9.9
Vital Signs:
max temp for 24 hours
10/09/24
15:38
Temp 97.7 F
Vital Signs
Temp Pulse Resp BP Pulse Ox
98.0 F 88 18 125/69 94
10/10/24 07:30 10/10/24 11:17 10/10/24 11:17 10/10/24 07:30 10/10/24 11:17
I&O
10/09/24 10/10/24 10/11/24
06:59 06:59 06:59
Intake Total 1080 / 1080
Output Total 1300 / 1300
Balance -220 / -220
Review of Systems
-
All other systems: Reviewed and negative
Respiratory: Reports Cough
Physical Exam
-
General: Well Developed, Well Nourished and No Apparent Distress
HEENT: Normocephalic, Atraumatic and Oxygen
Respiratory: Clear to Auscultation; Negative Wheezes or Rhonchi
Cardiac: Regular Rhythm and S1/S2; Negative Murmur
GI: Soft, Nontender, Nondistended and Normal Bowel Sounds
Musculoskeletal: No Clubbing, No Cyanosis and No Edema
Neuro: Awake and Alert
Psych: Calm
[2024-10-10 15:49] VITALS: BP 148/68
[2024-10-10 16:50] LABS: Glucose - Point of Care 104 mg/dl (70-99)
[2024-10-10] MEDS: NOVOLOG FLEXPEN-MODERATE RESISTANCE SC (17:10)
[2024-10-10] MEDS: SYMBICORT 160/4.5 MCG INHALER 2 PUFF INH (20:37)
[2024-10-10 22:21] LABS: Glucose - Point of Care 66 mg/dl (70-99)
[2024-10-10] MEDS: OCEAN, SALINE MIST 2 SPRAYS NASAL (22:41)
[2024-10-10] MEDS: STERILE WATER FOR INJECTION 10 ML IV (22:41)
[2024-10-10] MEDS: LOW STRENGTH ASPIRIN 81 MG PO (22:41)
[2024-10-10] MEDS: ROCEPHIN 1000 MG IV (22:41)
[2024-10-10 23:06] LABS: Glucose - Point of Care 94 mg/dl (70-99)
[2024-10-10 23:10] VITALS: BP 124/57
[2024-10-11] LABS: Glucose - Point of Care 111 mg/dl (70-99)
--- NOTE | 2024-10-11 00:19 | W.PN.UPDATE ---
Update Note
Progress Note Update
Bs is down to 66. Will hold tonight dose of Lantus.
[2024-10-11 02:33] LABS: Glucose - Point of Care 133 mg/dl (70-99)
[2024-10-11 07:09] VITALS: BP 121/58
[2024-10-11] MEDS: SYMBICORT 160/4.5 MCG INHALER 2 PUFF INH (07:48)
[2024-10-11] MEDS: DUONEB 3 ML INH ×3 (07:48→14:58)
--- NOTE | 2024-10-11 07:51 | PN.DE.MGMTRT ---
Insulin Management
- -
10/11/2024: Diabetes Management Follow up
Patient admitted 10/06 c/o cough x 1 week with SOB. Flu +, pneumonia, sepsis, acute hypoxic respiratory failure. PMH pancreatic cyst/mass, pancreatitis, PAD, diabetes, HTN, HLD, pulmonary HTN, ongoing smoker. Prior to admission was taking Humalog
20 units ss AC metformin 1000 mg daily and Lantus 46 units @ HS. A1C on admission 8.5%. CR .9, eGFR > 60.
Patient is awake alert, sitting up @ edge of bed, offers no complaints, able to discuss diabetes care.
Remains on IV steroids, Dexamethasone 4 mg Q 8 hours contributing to hyperglycemia. AC NovoLog 15 units with moderate corrective started 10/09. Glucose range prior to insulin adjustment > 300, pre dinner 295, HS 238. Received 50 units Lantus @ HS.
Fasting glucose 228.
Will increase HS Lantus to 55 units, increase NovoLog to 24 units AC with moderate corrective insulin with metformin 1000 mg daily.
Discussed with nurse.
Will follow.
Diabetes History
- -
Type of Diabetes: 2 requiring insulin
Pre-Admission Diabetes Regimen
10/10/24
07:14
Creatinine 0.9
Lab Results
Hemoglobin A1c 8.5 % (4.0-5.6) H 10/07/24 05:36
Insulin Pump Settings
IP Diabetes Regimen
10/10/24 10/10/24 10/10/24
07:14 08:11 11:54
Glucose 229 H
POC Glucose 228 H 272 H
10/10/24 10/10/24 10/10/24
16:49 22:19 23:05
Glucose
POC Glucose 104 H 66 L 94
10/10/24 10/11/24
23:58 02:32
Glucose
POC Glucose 111 H 133 H
Meal type: Dinner
Meal type: Lunch
Meal type: Breakfast
Amount consumed: 100%
Amount consumed: 100%
Amount consumed: 100%
Patient Education
[2024-10-11 08:45] LABS: Hematocrit 42.6 % (39.0-52.0); Hemoglobin 14.7 g/dL (13.0-18.0); Mean Corp Hgb Conc. 34.5 g/dL (33.0-37.0); Mean Corpuscular Hgb 30.4 pg (27.0-31.0); Mean Platelet Volume 9.4 fL (7.4-10.4); Platelet Count 581 10^3/uL (130-400); Red Blood Cell Count 4.84 10^6/uL (4.70-6.10); Red Cell Dist. Width 13.3 % (11.5-14.5); White Blood Cell Count 19.5 10^3/uL (4.8-10.8)
[2024-10-11] MEDS: HEPARIN 5000 UNITS SC (09:22)
[2024-10-11] MEDS: TRICOR 145 MG PO (09:23)
[2024-10-11] MEDS: TYLENOL 1000 MG PO (09:23)
[2024-10-11] MEDS: ZESTRIL 5 MG PO (09:23)
[2024-10-11] MEDS: CRESTOR 40 MG PO (09:23)
[2024-10-11] MEDS: VIBRAMYCIN 100 MG PO (09:24)
[2024-10-11] MEDS: THERAGRAN 1 TABLET PO (09:24)
[2024-10-11] MEDS: GLUCOPHAGE 1000 MG PO (09:24)
[2024-10-11 09:25] LABS: Blood Urea Nitrogen 36 mg/dl (9-20); Calcium 9.9 mg/dl (8.4-10.2); Carbon Dioxide 24 mmol/L (22-30); Chloride 99 mmol/L (98-107); Estimated Creatinine Clearance 60 ml/min; Glucose 179 mg/dl (70-99); Potassium 5.5 mmol/L (3.5-5.1); Sodium 133 mmol/L (135-145); eGFR > 60.00
[2024-10-11] MEDS: OCEAN, SALINE MIST 2 SPRAYS NASAL (09:25)
[2024-10-11] MEDS: NOVOLOG FLEXPEN-MODERATE RESISTANCE 9 UNITS SC (09:25)
[2024-10-11 09:31] LABS: Glucose - Point of Care 370 mg/dl (70-99)
[2024-10-11] MEDS: MUCINEX 1200 MG PO (09:31)
[2024-10-11] MEDS: NOVOLOG FLEXPEN 24 UNITS SC (09:31)
[2024-10-11] MEDS: DECADRON 4 MG IV (10:24)
--- NOTE | 2024-10-11 11:23 | W.PN.PUL.V3 ---
Today's Communication / Plan
-
Continue attempts at weaning FiO2
Continue Decadron-consider changing to prednisone 50 mg in the next 24 hours if continues to improve
Empiric finite course of antibiotics
Increase activity
Eventual outpatient pulmonary follow-up
Assessment
-
69-year-old male with a history of pancreatic cyst mass, pancreatitis, PAD, diabetes, hypertension, hyperlipidemia, pulmonary hypertension who is an ongoing smoker admitted with shortness of breath and cough found to have influenza, pneumonia and
loose stools-pulmonary consulted for shortness of breath/hypoxemia/pneumonia and pulmonary nodule 10/07/2024.
Hypoxemic respiratory failure
Seqtaflil-Ptlyfohts-[id number]
Influenza A
Metabolic acidosis
COPD suspected
Hyperglycemia
Leukocytosis
Conditions present prior to admission:
Pancreatitis.
Pancreatic cystic mass.
PAD-follows Dr. Lomax
Diabetes.
Hypertension.
Hyperlipidemia.
Pulm hypertension.
Cigarette smoker-recently reduced to 1 pack every 3 days
Plan
Respiratory decompensation likely due to underlying COPD and now with influenza/pneumonia
Supplemental oxygen as needed-currently on 8 L-respiratory therapy notes suggest at 2 AM patient was 93% saturation on room air
Incentive spirometry encouraged
Flutter encouraged
Mucolytic's continue as well-1200 mg twice daily
Mucus clearing devices
Nebulizers continue-DuoNebs 4 times daily
Symbicort 160/4.5
Decadron 4 mg IV every 12 hours-consider changing to prednisone 50 mg with slow taper in the next 24 hours
Saline nasal irrigations helping significantly
Chest x-rays and CT chest dating back to 2021 were reviewed.-His nodules are essentially stable-recommend yearly low-dose lung cancer screening CT chest-04/2025
Cultures reviewed
Influenza a positive
Unable to produce sputum
Tamiflu initiated-Finite course
Empiric antibiotics-ceftriaxone and doxycycline initiated-finite course
Follow cultures
Droplet precautions per protocol
Follow leukocytosis
Monitor blood sugar
Insulin supplementation as needed
Metformin continues.
Ongoing smoking cessation counseling was provided
DVT prophylaxis-on subcu heparin
Nutrition
Increase activity
Reviewed with nursing
Outpatient pulmonary [id number], smoking cessation counseling, yearly low-dose lung cancer screening CT, etc.-He would like to follow-up locally
Diagnostic data:
Chest x-ray 12/22/2021-unchanged 7 mm nodule/granuloma right upper lobe
Chest x-ray 10/06/2024-moderate asymmetrical opacifications in the lingula and basilar segments of the left lower lobe consistent with moderate left lower lobe pneumonia and lingular pneumonia, 6 mm solid right upper lobe nodule appears unchanged
CT chest low-dose 06/30/22-7.8 mm posterior right upper lobe mildly increased compared to previous CT 2014 and nodule, new 6.6 mm nodule posterior left lower lobe, mild centrilobular emphysema, nondependent 8 mm focus within the distal trachea might
represent a polyp, increase in size compared to prior CT, partially imaged hypodense and calcified lesion within the tail of the pancreas
CT chest 02/07/2020 3-2 pulmonary nodules have remained stable supporting benign etiology, probable tracheal polyp right midline distal trachea measuring [address] chest abdomen and pelvis 04/30/2024-no acute disease in the chest abdomen pelvis, pulmonary nodules stable dating back to 06/2022, mild emphysematous changes, cystic pancreatic masses probably pseudocyst, nonobstructing bilateral renal stones,
moderate diverticulosis
Echocardiogram 05/02/2023-EF 55-60%, no valvular disease
Nuclear stress test 05/19/2023-negative for ischemia, EF 71%, low risk study
Subjective Data
-
Date of Service:
Date of Service: October 11, 2024
Chief Complaint: Pulmonary Follow Up and Dyspnea Follow Up
Subjective:
Slightly improved, still on increased FiO2, nasal congestion improved with saline nasal sprays, no chest pain, mostly nonproductive cough, some dyspnea on exertion, no chest pain or abdominal pain
Review of Systems
General: Other (Per HPI)
Objective Data
Data Reviewed
Vital Signs / I&O:
Vital Signs
Temp Pulse Resp BP Pulse Ox
97.4 F 84 16 121/58 92
10/11/24 07:09 10/11/24 11:14 10/11/24 11:14 10/11/24 09:23 10/11/24 07:09
Intake and Output
10/10/24 10/11/24 10/12/24
06:59 06:59 06:59
Intake Total 1080 / 1080 960 / 960
Output Total 1300 / 1300 0 / 0
Balance -220 / -220 960 / 960
SaO2: 92
Nasal Cannula flow liters per minute: 6
Physical Exam
General: Respiratory Distress (n) and Comfortable
HEENT: Normocephalic and Anicteric
Cardiovascular: Regular Rhythm
Respiratory: Wheeze, Crackles (Basilar), Rhonchi (expiratory), Non-Labored Respirations, Accessory Resp Muscle Use (n) and Stridor
GI: Soft, Non Distended and Non Tender
Neurology: Awake, Alert and No Motor Deficits
Skin: Warm, Good Color, Cyanosis (n), Jaundice (n) and Rash (n)
Labs/Micro/Reports
Lab Data
10/11/24 07:40
10/11/24 07:40
[2024-10-11 11:28] LABS: Glucose - Point of Care 258 mg/dl (70-99)
--- NOTE | 2024-10-11 12:43 | W.PN.HOSP.TC ---
Today's Communication/Plan
-
d/c
Assessment / Plan
Assessment / Plan
pt is a 69 year old male
sepsis (POA) due to Influenza A infection/pna--tested neg on 10/03 at PCP--positive in ED 10/06--never got tamiflu
Acute Hypoxemic respiratory failure secondary to moderate left lower lobe pneumonia likely postviral pneumonia along with influenza A positive--cultures negative--off O2--apprec pulm --Ceftriaxone/doxycycline to oral meds, prednisone taper--repeat
CXR about the same
pulmonary nodule--noted on CXR--apprec pulm
Pulmonary hypertension
Hyperlipidemia--Continue fenofibrate
History of pancreatitis
History of pancreatic cyst mass
PAD--Continue aspirin, statin
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
Essential Hypertension--Continue lisinopril
code status --DNR/DNI
DVT prophy�heparin
Anticipated Discharge: Today
Subjective/Interval History
-
Date of Service: October 11, 2024
pt coughing but OK to go home
Objective Data
-
Labs:
Laboratory Results
10/11/24
07:40
WBC 19.5 H
Hgb 14.7
Hct 42.6
Plt Count 581 H
Sodium 133 L
Potassium 5.5 H
Chloride 99
Carbon Dioxide 24
BUN 36 H
Creatinine 1.1
Glucose 179 H
Calcium 9.9
Vital Signs:
max temp for 24 hours
10/10/24
15:49
Temp 97.4 F
Vital Signs
Temp Pulse Resp BP Pulse Ox
97.4 F 84 16 121/58 92
10/11/24 07:09 10/11/24 11:14 10/11/24 11:14 10/11/24 09:23 10/11/24 11:28
I&O
10/10/24 10/11/24 10/12/24
06:59 06:59 06:59
Intake Total 1080 / 1080 960 / 960
Output Total 1300 / 1300 0 / 0
Balance -220 / -220 960 / 960
Review of Systems
-
All other systems: Reviewed and negative
Physical Exam
-
General: Well Developed, Well Nourished and No Apparent Distress
HEENT: Normocephalic and Atraumatic
Respiratory: Clear to Auscultation and Other (nonproductive cough); Negative Wheezes, Rales or Rhonchi
Cardiac: Regular Rhythm and S1/S2; Negative Murmur
GI: Soft, Nontender, Nondistended and Normal Bowel Sounds
Musculoskeletal: No Clubbing, No Cyanosis and No Edema
Neuro: Awake
Psych: Calm
[2024-10-11 13:42] LABS: Glucose - Point of Care 151 mg/dl (70-99)
[2024-10-11] MEDS: NOVOLOG FLEXPEN SC (13:45)
[2024-10-11] MEDS: NOVOLOG FLEXPEN-MODERATE RESISTANCE SC (13:46)
[2024-10-11] MEDS: OCEAN, SALINE MIST NASAL (13:47)
--- NOTE | 2024-10-11 14:25 | W.DCSUMMARY ---
Discharge Summary
Discharge Data
Date of Admission: 10/06/24
Date of Discharge: 10/11/24
Total time spent discharging patient (in min): 33
-
Pending Results: No
Hospital Course
Primary care physician : Josue Garcia
Principal Discharge diagnosis : Sepsis with acute hypoxemic respiratory failure due to influenza A infection and moderate left lower lobe pneumonia
Chronic Discharge diagnosis : Pulmonary nodule, pulmonary hypertension, hyperlipidemia, history of pancreatitis, peripheral arterial disease, type 2 diabetes, essential hypertension
Hospital Course : Patient is a 69-year-old male with a history of pulmonary hypertension among other issues who was having a cough for 1 week. He stated that the cough was productive of clear sputum. He had shortness of breath but no chest pain.
He had a mild sore throat and congestion without any fevers or chills. He was prescribed Tessalon Perles by his primary care physician without improvement. He also had some loose stools throughout the week but they have since returned to normal by
the time he was admitted. Patient was found to be influenza positive along with pneumonia and was admitted.
Problem #1: Sepsis with acute hypoxemic respiratory failure due to influenza A infection and moderate left lower lobe pneumonia. Patient actually tested negative for the flu on , October 03, 2024 had been at his primary care physician's
office. Upon arrival to the emergency department on October 06, 2024 he was deemed to be positive for influenza. Unfortunately, he was out of the window and never got Tamiflu. He did have acute hypoxemic respiratory failure and was on 10 L of
oxygen. He was started on ceftriaxone and doxycycline along with IV steroids. Repeat chest x-ray was checked which continued to show pneumonia but no worsening. He was eventually weaned off oxygen to room air. He was seen in consultation by
pulmonary. He will go home on the steroid taper along with inhaled steroid/long-acting beta agonist and short acting albuterol for rescue breathing. In addition he will be prescribed Hycodan for cough. Patient is much improved. All other
cultures were negative.
Problem #2: All other medical issues. These include Pulmonary nodule, pulmonary hypertension, hyperlipidemia, history of pancreatitis, peripheral arterial disease, type 2 diabetes, essential hypertension. These medical issues were stable during
his hospitalization. Medications were continued as able. In regards to his pulmonary nodule, this was found incidentally on his imaging studies. He is instructed to follow-up with pulmonary. In regards to his type 2 diabetes, blood sugars were
elevated throughout his hospitalization likely due to the initiation of steroids by pulmonary. Diabetic nurse practitioner was consulted to assist with management.
Patient is stable for discharge home at this time. If there are any questions regarding this dictation or his hospital stay, please not hesitate to call. Our office number is [phone].
Time for discharge 33 minutes.
Discharge Plan
-
Patient Disposition: Home (Routine Discharge)
Discharge Diagnosis/Procedures: Sepsis due to influenza A infection along with postviral pneumonia and acute hypoxemic respiratory failure, pulmonary nodule, pulmonary hypertension, hyperlipidemia, peripheral arterial disease, type 2 diabetes
mellitus, essential hypertension
Condition: Good
Diet: Diabetic, Carb Controlled
Activity: As tolerated
Driving Restrictions: As prior to admission
Bathing Restrictions: None
Referrals:
Josue Garcia MD [Family Provider] - in less than 1 week
Blaine Caceres MD [Active] - in one to two weeks
(Dr. Caceres, or [id number] pneumonia
Eventual PFTs, ongoing smoking cessation counseling, yearly low-dose lung cancer screening. CT)
Prescriptions:
New
budesonide-formoterol [Symbicort] 160-4.5 mcg/actuation Hfa Aerosol Inhaler
2 puff inhalation R BID Qty: 10.2 0RF
insulin aspart U-100 100 unit/mL (3 mL) Insulin Pen
24 unit SC AC Qty: 0 0RF
Insulin Glargine Lantus [Lantus] 55 UNITS
Subcutaneous Insulin Syringe [Syringe-Insulin] 0 UNIT
As Directed mls/hr SC DAILY@2200
Ordered By: Valery Negron MD
Last Taken: 10/09/24 21:49 0.5 mls
guaifenesin 600 mg Tablet Extended Release 12hr
1,200 mg PO Q12 Qty: 0 0RF
prednisone 10 mg Tablet
See Rx Instructions .ROUTE .COMPLEX Qty: 45 0RF
Rx Instructions:
Take By Mouth:
50 mg daily x3 days, 40 mg daily x3 days,
30 mg daily x3 days, 20 mg daily x3 days,
10 mg daily x3 days
hydrocodone-homatropine [Hycodan] 5-1.5 mg/5 mL (5 mL) syrup
5 ml PO Q6H PRN (Reason: Cough) Qty: 200 0RF
albuterol sulfate 90 mcg/actuation HFA aerosol inhaler
2 puff inhalation Q6H PRN (Reason: SOB/wheeze) Qty: 6.7 0RF
amoxicillin-pot clavulanate 500-125 mg tablet
1 tab PO BID 7 Days Qty: 14 0RF
Continued
aspirin [[facility] Leopoldo Aspirin] 81 MG tablet,chewable
81 mg PO Q48H
metformin 500 mg Tablet
1,000 mg PO DAILY
loperamide 2 mg Tablet
2 mg PO TIDPRN PRN (Reason: diarrhea )
therapeutic multivitamin Tablet
1 tab PO DAILY
acetaminophen [Tylenol Extra Strength] 500 mg Tablet
1,000 mg PO DAILY
lisinopril 5 mg Tablet
5 mg PO DAILY
rosuvastatin [Crestor] 40 mg Tablet
40 mg PO DAILY
fenofibrate nanocrystallized [Tricor] 145 mg Tablet
145 mg PO DAILY
Discontinued
insulin glargine [Lantus Solostar U-100 Insulin] 300 UNITS/3 ML insulin pen
46 units SC HS
insulin lispro [Humalog KwikPen Insulin] 100 unit/mL Insulin Pen
20 sliding scale dose SC AC
Discharge Orders:
Discharge Patient (As Directed); Ordered 10/11/24
Ordered By: Valery Negron
Discharge Date and Time
Print Language: BULGARIAN
[2024-10-11 14:55] VITALS: BP 129/64
== END 2024-10-11 15:30 | disposition home or self-care (01) | DRG 871 ==
LOC: 4 WEST ACU 23:53
PROVIDERS: ADMITTING PHYSICIAN Hospitalist; ATTENDING PHYSICIAN Internal Medicine; CONSULT PHYSICIAN Internal Medicine Critical Care Medicine; EMERGENCY PHYSICIAN Emergency Medicine; FAMILY PHYSICIAN Family Medicine
DX: A41.89 Other specified sepsis (principal); J10.00 Influenza due to other identified influenza virus with unspecified type of pneumonia; J96.01 Acute respiratory failure with hypoxia; E87.20 Acidosis, unspecified; J44.0 Chronic obstructive pulmonary disease with (acute) lower respiratory infection; Z66 Do not resuscitate; E78.00 Pure hypercholesterolemia, unspecified; I10 Essential (primary) hypertension; I27.20 Pulmonary hypertension, unspecified; E11.51 Type 2 diabetes mellitus with diabetic peripheral angiopathy without gangrene; E11.65 Type 2 diabetes mellitus with hyperglycemia; F17.210 Nicotine dependence, cigarettes, uncomplicated; Z79.899 Other long term (current) drug therapy; Z79.84 Long term (current) use of oral hypoglycemic drugs; Z79.82 Long term (current) use of aspirin; Z79.4 Long term (current) use of insulin; Z79.51 Long term (current) use of inhaled steroids; Z20.822 Contact with and (suspected) exposure to COVID-19
CPT/HCPCS: 71046; 80048; 80053; 82947; 82962; 83036; 83735; 85025; 85027; 87502; 87811; 94640; 96365; 96375; 99285; 99406

== ENCOUNTER → 2025-02-10 07:38 | Outpatient (REF) | payer MEDICARE, SELFPAY | LOC: HWRAD 07:38 | PROVIDERS: ATTENDING PHYSICIAN Nurse Practitioner Adult Health; FAMILY PHYSICIAN Family Medicine | DX: R91.8 Other nonspecific abnormal finding of lung field (principal) | CPT/HCPCS: 71250 ==

== ENCOUNTER → 2025-07-14 08:23 | Outpatient (REF) | payer OTHER, SELFPAY | LOC: RAD 08:23 | PROVIDERS: ATTENDING PHYSICIAN Surgery Vascular Surgery; FAMILY PHYSICIAN Family Medicine | DX: I73.9 Peripheral vascular disease, unspecified (principal) | CPT/HCPCS: 93922; 93925 ==